=== PATIENT | female | born 1940 | race Caucasian/White ===

== ENCOUNTER → 2017-04-19 | Outpatient (CLI) | payer MEDICARE, BC ==
--- NOTE | 2017-04-19 14:22 | NM ---
EXAMINATION TYPE: NM bone scan whole body DATE OF EXAM: 04/19/2017 COMPARISON: CT abdomen pelvis dated 07/10/1715. Outside radiographs of the lumbar spine dated 04/15/20 17. HISTORY: Lumbar spondylosis with myelopathy. L3 compression deformity and L1 compression deformity. Delayed whole-body scanning was performed following the injection of 25.9 mCi Tc 99m MDP. Images acq uired 3 hours post injection. FINDINGS: The compression deformity noted of the L3 superior endplate described on the CT abdomen pelvis dated 07/10/1715 is seen on the outside radiographs dated 04/15/2017. L1 compression deformity was not visua lized on the prior CT. Focal uptake is appreciated within the L1 vertebral body. Mild symmetric uptak e is also seen within the acromioclavicular joints, sternal manubrium, femoral acetabular joints, met atarsals, and knees related to degenerative osteoarthropathy. Asymmetric uptake is also appreciated a long the left sacroiliac joint and within the T6 vertebral body. No other suspicious uptake is seen. Physiologic renal excretion into the urinary bladder is appreciat ed. IMPRESSION: 1. Focal radiotracer uptake within the L1 vertebral body corresponding to the known compression defor mity of L1 on the outside radiographs dated 04/15/2017. Radiotracer accumulation may relate to acute f racture or pathologic fracture. 2. Focal radiotracer cannulation within the T6 vertebral body could also relate to compression deform ity. Correlation with thoracic radiographs is recommended. 3. Asymmetric uptake within the left sacroiliac joint may relate to sacroiliitis or insufficiency fra cture. However, pelvic radiograph's are recommended to ensure no suspicious osseous lesion.
== END | disposition home or self-care (01) ==
LOC: RADNMMAIN 10:35
PROVIDERS: ATTEND Physical Medicine & Rehabilitation
DX: M43.8X6 Other specified deforming dorsopathies, lumbar region (principal)
CPT/HCPCS: 78306; A9503

== ENCOUNTER → 2017-11-29 | Outpatient (CLI) | payer MEDICARE, BC ==
[2017-11-29 10:42] LABS: Basophils % (A) 0 %; Eosinophils # (A) 0.2 k/uL (0-0.7); Eosinophils % (A) 4 %; HCT 33.1 % (34.0-46.0); HGB 10.6 gm/dL (11.4-16.0); Lymphocytes # (A) 1.1 k/uL (1.0-4.8); Lymphocytes % (A) 21 %; MCH 30.5 pg (25.0-35.0); MCHC 32.2 g/dL (31.0-37.0); MCV 94.8 fL (80.0-100.0); Mean Platelet Volume 7.4; Monocytes # (A) 0.5 k/uL (0-1.0); Monocytes % (A) 8 %; Neutrophils # (A) 3.4 k/uL (1.3-7.7); Neutrophils % (A) 63 %; Platelet Count 289 k/uL (150-450); RBC 3.49 m/uL (3.80-5.40); RDW 12.6 % (11.5-15.5); WBC 5.4 k/uL (3.8-10.6)
[2017-11-29 10:50] LABS: Appearance,Urine Clear (Clear); Bacteria,Urine Rare /hpf; Bilirubin,Urine Negative (Negative); Blood,Urine Small (Negative); Color,Urine Light Yellow; Glucose,Urine (UA) Negative (Negative); Ketones,Urine Negative (Negative); Leukocyte Esterase,Urine Moderate (Negative); Mucus,Urine Rare /hpf; Nitrite,Urine Negative (Negative); Protein,Urine Negative (Negative); RBC,Urine 23 /hpf (0-5); Specific Gravity,Urine 1.011 (1.001-1.035); Urobilinogen,Urine <2.0 mg/dL (<2.0); WBC,Urine 26 /hpf (0-5)
[2017-11-29 11:20] LABS: Albumin 3.6 g/dL (3.5-5.0); Calcium 9.6 mg/dL (8.4-10.2); Potassium 5.7 mmol/L (3.5-5.1); Total Bilirubin 0.3 mg/dL (0.2-1.3); Total Protein 5.8 g/dL (6.3-8.2)
== END | disposition home or self-care (01) ==
LOC: LABPAT 09:53
PROVIDERS: ATTEND Urology
DX: N20.0 Calculus of kidney (principal); R35.0 Frequency of micturition; R31.29 Other microscopic hematuria; R53.83 Other fatigue; Z01.818 Encounter for other preprocedural examination; Z79.899 Other long term (current) drug therapy
CPT/HCPCS: 36415; 80053; 81001; 85025; 86850; 86900; 86901; 87086; 93005

== ENCOUNTER 2017-12-06 05:56 | Day surgery (SDC) | payer MEDICARE, BC ==
[2017-12-03 14:01] VITALS: BMI 21.2
[~2017-12-06 05:56] MED LIST: AMPICILLIN 1,000 MG in SODIUM CHLORIDE 0.9% 50 ML IVPB ONE; DEXAMETHASONE SOD PHOSPHATE 10 MG/ML 1 ML VIAL IV ONE; GENTAMICIN IN NACL ISO-OSM PMX 80 MG in SALINE 1 100ML.BAG IVPB ONE; LACTATED RINGERS 1,000 ML IV SCH; MIDAZOLAM 2 MG/2 ML VIAL IV PRN; ONDANSETRON 4 MG/2 ML VIAL IVP ONE; fentaNYL (PF) 50 MCG/ML 2 ML AMP IV PRN
[2017-12-06] MEDS ORDERED: LIDOCAINE 1% 20 ML VIAL (10MG/ML) FOR IV START INTRADERMA ONE (06:49)
--- NOTE | 2017-12-06 07:12 | XR ---
EXAMINATION TYPE: XR KUB DATE OF EXAM: 12/06/2017 7:06 AM CLINICAL HISTORY: Right flank pain TECHNIQUE: Single supine KUB image of the abdomen is obtained. COMPARISON: None. FINDINGS: There are numerous bilateral renal calculi with the largest developed in the interim in com parison to exam of 07/10/1715 measuring 3.0 cm. The second largest on the right measures 1.0 cm. Susp ected additional small calculi are seen laterally. On the left there are multiple left renal calculi developing medially conforming to an early staghorn appearance. The largest measures 2.3 cm. There ar e at least 6 large calculi with some large calculi possibly representing confluent multiple small frandy culi. There is suspected compression deformity of the L1 vertebral body to the prior. Lumbar spine radiogra phs could be performed. Multilevel degenerative change of the lumbar spine is seen. Scattered gas is seen in non-distended small bowel loops. Gas and fecal material is seen in non-distended colon. IMPRESSION: 1. Multiple large bilateral calculi, the largest on the right measuring 3.0 cm and the largest on the left measuring 2.4 cm. 2. Suspected new compression deformity of the L1 vertebral body. Dedicated lumbar spine radiographs c ould be performed for further assessment.
[2017-12-06] MEDS ORDERED: GLYCOPYRROLATE 0.2 MG/ML 2 ML VIAL ONE (07:27)
[2017-12-06] MEDS ORDERED: fentaNYL (PF) 50 MCG/ML 2 ML AMP ONE (07:27)
[2017-12-06] MEDS ORDERED: ROCURONIUM BROMIDE 10 MG/ML 10 ML VIAL IV ONE (07:27)
[2017-12-06] MEDS ORDERED: MIDAZOLAM 2 MG/2 ML VIAL ONE (07:27)
[2017-12-06] MEDS ORDERED: PROPOFOL 10 MG/ML 20 ML VIAL IV ONE (07:27)
[2017-12-06] MEDS ORDERED: LIDOCAINE 1% INJ 10MG/ML (20 ML MDV) ONE (07:27)
[2017-12-06] MEDS ORDERED: NEOSTIGMINE 1 MG/ML 10 ML VIAL ONE (07:27)
[2017-12-06] MEDS ORDERED: IOPAMIDOL-370 50ML BTL MISCELLANE ONE (08:04)
[2017-12-06] MEDS ORDERED: LACTATED RINGERS 1,000 ML IV ONE (09:04)
[2017-12-06] MEDS ORDERED: MAG HYDROX/AL HYDROX/SIMETH 30 ML CUP PO PRN (09:22)
[2017-12-06] MEDS ORDERED: ONDANSETRON 4 MG/2 ML VIAL IVP PRN (09:22)
[2017-12-06] MEDS ORDERED: HYDROmorphone PCA 5 MG/25 ML SYRINGE IV PRN (09:24)
[2017-12-06] MEDS ORDERED: NALOXONE 0.4 MG/ML 1 ML VIAL IV PRN (09:24)
--- NOTE | 2017-12-06 09:31 | P.OP ---
Date of Procedure: 12/06/17 Preoperative Diagnosis: Right renal calculi, large Postoperative Diagnosis: Right renal calculi large Procedure(s) Performed: Cystoscopy, placement of occluding balloon catheter right, percutaneous nephrostomy (Dr. barth) , percutaneous nephrostolithotomy at ultrasound, placement of 12 J nephrostomy Anesthesia: HEATHER Surgeon: Shailesh Dumont Estimated Blood Loss (ml): 50 Pathology: other (Stone) Condition: stable Disposition: PACU Indications for Procedure: The patient is a 77-year-old female with a 3-1/2 cm right renal pelvic stone and an 8 mm UPJ stone causing obstruction she comes for percutaneous nephrostolithotomy to remove these large stones Description of Procedure: Patient is brought to the operating suite. She given a successful general endotracheal anesthesia. He's placed in a frog position with sterile prep and drape. Cystoscopy Foroblique lens and 22-[place] sheath identifies a normal right ureteral orifice. It is intubated with a 5-[place] occluding balloon catheter which is passed up to the proximal ureter. The cystoscope removed and it is secured to a 16-[place] Michael Patient's placed in a prone position care to airways and extremities. Dr. Barth of radiology performed percutaneous access to the right lower pole calyx. The sheath was dilated to 30-[place]. I introduced the rigid scope removed clot and identify the large stone. With the ultrasound probe the stone was broken into tiny pieces to the scope. I also remove the proximal ureteral stone. I looked throughout the collecting system with the flexible scope and remove smaller stones with the stone basket. At the end of procedure there is no obvious remaining stones. A 12-[place] J nephrostomy tubes placed over the working wire. It is placed in the renal pelvis. It is secured to the skin with 2-0 silk. The working sheath is removed. The patient notes awake and returned recovery in good condition. Blood loss is approximately 2 mL.
--- NOTE | 2017-12-06 10:08 | FL ---
EXAMINATION TYPE: FL Perc Nephrostomy New Access DATE OF EXAM: 12/06/2017 COMPARISON: NONE HISTORY: Right renal stone Procedure had been discussed with the patient by Dr. Dumont, risks, benefits, alternatives, were dis cussed and any questions were answered. Informed consent was obtained. The patient was in a semipro ne position prepped and draped on the OR table in the usual sterile fashion. Utilizing a 15 cm lengt h [place] needle a single pass was made into a lower pole posterior calyx under fluoroscopic guidance. An 0.018 guidewire is passed through the needle and there was placement of a 6-[place] catheter sheat h system. There was conversion to a 0.035 system was performed with passage of a guidewire into the ureter utilizing a directional catheter. A second safety wire was placed. Remaining portion of pro cedure performed by . Approximately 2 minutes and 54 seconds of fluoroscopy was provided. IMPRESSION: 1. Successful intraoperative right nephrostomy prior to nephrolithotomy.
[2017-12-06] MEDS: KETOROLAC 30 MG/ML 1 ML VIAL IVP PRN ×2 (11:38→17:41)
[2017-12-06] MEDS: DEXTROSE 5%-0.45% NACL 1,000 ML IV SCH (11:53)
[2017-12-06] MEDS: ACETAMINOPHEN TAB 325 MG TAB PO PRN ×2 (14:26→22:05)
[2017-12-07] MEDS: KETOROLAC 30 MG/ML 1 ML VIAL IVP PRN
[2017-12-07] MEDS: DEXTROSE 5%-0.45% NACL 1,000 ML IV SCH (00:11)
[2017-12-07] MEDS: ACETAMINOPHEN TAB 325 MG TAB PO PRN (05:11)
--- NOTE | 2017-12-07 09:51 | P.DS ---
Providers Date of admission: 10/06/2017 Expected date of discharge: 12/07/17 Attending physician: Shailesh Dumont Primary care physician: [facility] Course: The patient is a 77-year-old female with a history of right flank pain secondary to a 3.5 cm renal pelvic calculus and an 8 mm calculus at the ureteropelvic junction. The patient underwent right percutaneous nephrostolithotomy on the date of admission. A right nephrostomy tube and urethral catheter were left following the surgery. The patient remained afebrile and comfortable postop. Her urethral catheter was removed on the first day postop. Urine draining from the nephrostomy was pink colored but free of clots. The patient will be discharged with the nephrostomy tube in place and will follow-up with Dr. Dumont next week. Procedures: Right percutaneous nephrostolithotomy 10/06/2017 Patient Condition at Discharge: Good Plan - Discharge Summary Discharge Rx Participant: Yes New Discharge Prescriptions: No Action Ondansetron [Zofran ODT] 4 mg PO DAILY Tamsulosin [Flomax] 0.4 mg PO DAILY Acetaminophen [Tylenol Extra Strength] 1,000 mg PO Q6HR PRN PRN Reason: Pain Discharge Medication List Acetaminophen [Tylenol Extra Strength] 1,000 mg PO Q6HR PRN 12/03/17 [History] Ondansetron [Zofran ODT] 4 mg PO DAILY 12/03/17 [History] Tamsulosin [Flomax] 0.4 mg PO DAILY 12/03/17 [History] Follow up Appointment(s)/Referral(s): Shailesh Dumont MD [STAFF PHYSICIAN] - 3 Days Activity/Diet/Wound Care/Special Instructions: Instruct patient in care of nephrostomy tube Discharge Disposition: HOME SELF-CARE
[2017-12-07 11:47] VITALS: BP 159/66; PULSE 63; RESP 18; TEMP 97.3
== END 2017-12-07 12:13 | disposition home or self-care (01) ==
LOC: OR 05:56 → 6PED 09:06 → OR 12-07 12:13
PROVIDERS: ATTEND Urology
DX: N20.2 Calculus of kidney with calculus of ureter (principal); Z90.49 Acquired absence of other specified parts of digestive tract; Z87.442 Personal history of urinary calculi; Z79.82 Long term (current) use of aspirin; Z79.1 Long term (current) use of non-steroidal anti-inflammatories (NSAID); Z79.899 Other long term (current) drug therapy; Z88.5 Allergy status to narcotic agent
CPT/HCPCS: 84132; 82365; 50432; 74018; 50081; C1769 ×4; C2628; C1729 ×4; C1894; J1580; J2250; J1100; J2710; J2405; J2001; J3010; J1885 ×2; J0290; J2704; Q9967; 86850; 86900; 86901

== ENCOUNTER → 2018-06-24 | Outpatient (CLI) | payer MEDICARE, BC | END | disposition home or self-care (01) | LOC: LABWHC1 12:00 | PROVIDERS: ATTEND Urology | DX: Z01.812 Encounter for preprocedural laboratory examination (principal) | CPT/HCPCS: 36415; 86850; 86900; 86901 ==

== ENCOUNTER 2018-06-25 05:53 | Day surgery (SDC) | payer MEDICARE, BC ==
[~2018-06-25 05:53] MED LIST changes: -AMPICILLIN 1,000 MG in SODIUM CHLORIDE 0.9% 50 ML IVPB ONE; -GENTAMICIN IN NACL ISO-OSM PMX 80 MG in SALINE 1 100ML.BAG IVPB ONE; -LACTATED RINGERS 1,000 ML IV SCH; +LIDOCAINE 1% 20 ML VIAL (10MG/ML) FOR IV START INTRADERMA PRN; +SCOPOLAMINE 1.5MG/72HR PATCH TRANSDERM ONE; +ceFAZolin IN SWFI 2 GM/20 ML SYRINGE IVP ONE; -fentaNYL (PF) 50 MCG/ML 2 ML AMP IV PRN
[2018-06-25] MEDS: LACTATED RINGERS 1,000 ML IV SCH (06:46)
[2018-06-25 07:34] LABS: INR 1.1 (<1.2); Prothrombin Time 10.4 sec (9.0-12.0)
--- NOTE | 2018-06-25 07:47 | P.GSHP ---
History of Present Illness H&P Date: 06/25/18 The patient is a 78-year-old female with a history kidney stones. She is status post right percutaneous nephrostolithotomy. She has a partially branch staghorn calculus in the left kidney. She come for percutaneous nephrostolithotomy for this. The risks and complications of an outlined. - Constitutional Constitutional: Denies chills, Denies fever - EENT Eyes: denies blurred vision, denies pain Ears, nose, mouth and throat: Denies headache, Denies sore throat - Cardiovascular Cardiovascular: Denies chest pain, Denies shortness of breath - Respiratory Respiratory: Denies cough, Denies 7 - Gastrointestinal Gastrointestinal: Denies abdominal pain, Denies diarrhea, Denies nausea, Denies vomiting - Genitourinary (Female) Genitourinary: Denies dysuria, Denies hematuria - Genitourinary (Male) Genitourinary: Denies dysuria, Denies hematuria - Musculoskeletal Musculoskeletal: Denies myalgias - Integumentary Integumentary: Denies pruritus, Denies rash - Neurological Neurological: Denies numbness, Denies weakness - Psychiatric Psychiatric: Denies anxiety, Denies depression - Endocrine Endocrine: Denies fatigue, Denies weight change Past Medical History Past Medical History: Blood Disorder, Pulmonary Embolus (PE) Additional Past Medical History / Comment(s): states unsure of blood disorder, sees a specialist for it, bowel obstruction, kidney stones, varicose veins, "short bowel syndrome"(frequent diarrhea), History of Any Multi-Drug Resistant Organisms: None Reported Past Surgical History: Appendectomy, Bowel Resection, Orthopedic Surgery, Tonsillectomy Additional Past Surgical History / Comment(s): spleenectomy, bowel resection for twisted bowel, nohelia shoulder arthroscopy, 12/06/2017 right neproholitomy with nephrostomy tube. Past Anesthesia/Blood Transfusion Reactions: Postoperative Nausea & Vomiting ( PONV) Past Psychological History: No Psychological Hx Reported Smoking Status: Former smoker Past Alcohol Use History: Occasional Additional Past Alcohol Use History / Comment(s): quit smoking 40 yrs ago, smoked for 15 yrs, < 1 PPD Past Drug Use History: None Reported - Past Family History Mother Family Medical History: No Reported History Medications and Allergies Home Medications Medication Instructions Recorded Confirmed Type Acetaminophen [Tylenol Extra 1,000 mg PO Q6HR PRN 12/03/17 06/25/18 History Strength] Warfarin [Coumadin] 2.5 mg PO SUMOWEFR 06/23/18 06/23/18 History Allergies Allergy/AdvReac Type Severity Reaction Status Date / Time hydrocodone bitartrate AdvReac Nausea Verified 06/23/18 11:18 [From [place]] hydromorphone HCl AdvReac Nausea Verified 06/23/18 11:18 [From Dilaudid] morphine AdvReac Nausea Verified 06/23/18 11:18 Surgical - Exam Vital Signs Temp Pulse Resp BP Pulse Ox 97.4 F L 69 18 182/82 98 06/25/18 06:27 06/25/18 06:27 06/25/18 06:27 06/25/18 06:27 06/25/18 06:27 - General well developed, well nourished, no distress - Eyes PERRL - ENT no hearing loss - Neck no masses - Respiratory normal expansion, normal respiratory effort - Cardiovascular Rhythm: regular - Abdomen Abdomen: soft, non tender - Integumentary no rash, no growths - Neurologic normal coordination, normal sensation - Musculoskeletal normal gait, normal posture - Psychiatric oriented to time, oriented to person, oriented to place, speech is normal, memory intact Results - Imaging Abdominal x-ray: report reviewed, image reviewed CT scan - abdomen: report reviewed, image reviewed CT scan - pelvis: report reviewed, image reviewed Assessment and Plan Assessment: Impression: Left renal calculus, large Recommendations: Percutaneous nephrostolithotomy left with cystoscopy.
[2018-06-25] MEDS ORDERED: SUCCINYLCHOLINE CHLORIDE 100 MG/5 ML SYR IV ONE (08:04)
[2018-06-25] MEDS ORDERED: LIDOCAINE 1% INJ 10MG/ML (20 ML MDV) ONE (08:04)
[2018-06-25] MEDS ORDERED: fentaNYL (PF) 50 MCG/ML 2 ML AMP ONE (08:04)
[2018-06-25] MEDS ORDERED: PROPOFOL 10 MG/ML 20 ML VIAL IV ONE (08:04)
[2018-06-25] MEDS ORDERED: ROCURONIUM BROMIDE 10 MG/ML 10 ML VIAL IV ONE (08:04)
[2018-06-25] MEDS ORDERED: MIDAZOLAM 2 MG/2 ML VIAL ONE (08:04)
[2018-06-25] MEDS ORDERED: GLYCOPYRROLATE 0.2 MG/ML 2 ML VIAL ONE (08:04)
[2018-06-25] MEDS ORDERED: NEOSTIGMINE 1 MG/ML 10 ML VIAL ONE (08:04)
--- NOTE | 2018-06-25 08:24 | XR ---
Abdomen HISTORY: Left kidney stone Frontal view the abdomen on 2 images correlated to prior abdomen dated 12/06/2017, CT 11/25/2017 Large stone seen on previous exam within the right kidney is no longer evident. There are 2 small frandy culi present at the upper pole the right kidney measuring approximately 5 and 3 to 4 mm respectively. At the left kidney upper pole region there is a calculus measuring 19 mm, midpole R region multiple calculi present, largest measuring approximately 18 mm, there may be 4 5 calculi present. Large amoun t of retained fecal debris is present within the colon. Lung bases are clear. No evident bowel obstru ction or pneumoperitoneum. Surgical clips are present in the left upper quadrant. IMPRESSION: Bilateral nephrolithiasis. Correlate for fecal stasis.
[2018-06-25] MEDS ORDERED: IOHEXOL IRRIGATION ONE (08:40)
[2018-06-25] MEDS ORDERED: SODIUM CHLORIDE 0.9% IRRIGATION ONE (08:40)
[2018-06-25] MEDS ORDERED: LACTATED RINGERS 1,000 ML IV ONE ×2 (09:27→11:10)
[2018-06-25] MEDS ORDERED: MAG HYDROX/AL HYDROX/SIMETH 30 ML CUP PO PRN (10:25)
[2018-06-25] MEDS ORDERED: ACETAMINOPHEN TAB 325 MG TAB PO PRN (10:25)
[2018-06-25] MEDS ORDERED: NALOXONE 0.4 MG/ML 1 ML VIAL IV PRN (10:27)
[2018-06-25] MEDS ORDERED: HYDROmorphone PCA 5 MG/25 ML SYRINGE IV PRN (10:27)
[2018-06-25] MEDS ORDERED: KETOROLAC 30 MG/ML 1 ML VIAL IVP PRN (10:27)
--- NOTE | 2018-06-25 10:32 | P.OP ---
Date of Procedure: 06/25/18 Preoperative Diagnosis: Partial staghorn calculus left, large Postoperative Diagnosis: Same Procedure(s) Performed: Cystoscopy, placement of occluding balloon catheter a left ureter, percutaneous nephrostomy (Dr. Leong), percutaneous nephrostolithotomy with ultrasound, placement of 20-[place] reentry nephrostomy tube Anesthesia: HEATHER Surgeon: Shailesh Dumont Estimated Blood Loss (ml): 100 Pathology: other (Stone) Condition: stable Disposition: PACU Indications for Procedure: The patient is 78. She had a percutaneous nephrostolithotomy to a staghorn calculus on the right last spring. She now has a partial staghorn calculus on the left that she comes for removal the stone that is greater than 3 cm Description of Procedure: The patient is brought to the operating suite. She is given a general endotracheal anesthesia on the transport gurney. She's placed in a frog position with a sterile prep and drape. Cystoscopy of the Foroblique lens and 22-[place] sheath I identifies the left ureteral orifice which is intubated with a 5-[place] occluding balloon catheter. It is secured to the Michael catheter after the cystoscope was removed. The patient is then placed onto the operating table in a prone position with care to airways and extremities Dr. Leong of radiology performed percutaneous access to the posterior mid pole calyx. We dilate the tract to 30-[place]. Upon initial inspection it becomes obvious that she has a very complicated delicate collecting system with stone within. With difficult angles I'm able to eventually get into the upper pole calyx and remove the large stone with ultrasound fracturing the stone and removing it. I then am able to get into one of the lower pole calyces which is complex and remove a moderate amount of stone. Due to edema and mucosal leading I am unable to access all the lower pole calyces. Thus stone remains that I'm unable to access. She has multiple minor calyces that not benefit from a second stick at this point in time. I thus will place a nephrostomy tube and do a second look into the lower pole collecting system to remove the remaining stone next week. A 20-[place] reentry nephrostomy tube was placed. It is secured to the skin. The patient is awakened and removed to recovery room success. The ureteral catheters removed. The patient tolerated the procedure well. Blood loss is approximately 1 mm.
[2018-06-25] MEDS: HYDROmorphone 0.5 MG/0.5 ML SYRINGE IVP PRN ×2 (10:58→11:04)
[2018-06-25] MEDS: ONDANSETRON 4 MG/2 ML VIAL IVP PRN ×2 (12:21→18:30)
[2018-06-25 13:33] VITALS: BMI 20.2
[2018-06-25] MEDS: DEXTROSE 5%-0.45% NACL 1,000 ML IV SCH (13:55)
--- NOTE | 2018-06-25 14:30 | FL ---
EXAMINATION TYPE: FL Perc Nephrostomy New Access DATE OF EXAM: 06/25/2018 COMPARISON: CT from outside institution 11/25/2017 HISTORY: Left nephrolithiasis. PROCEDURE: Maximal barrier technique was utilized. The skin overlying the left kidney was localized using fluor oscopy and the overlying skin prepped and draped. Lidocaine used for local anesthesia. Skin joaquim wa s made with a scalpel. Access was gained under fluoroscopy, following placement of a ureteral occlus ion balloon by the referring clinician and instillation of air in the renal collecting system with a 21-gauge needle to the kidney. A suitable posterior calyx was chosen. A 0.018 inch wire was advanc ed. The access site was dilated and subsequently a sheath was advanced into the renal pelvis followi ng dilation with balloon along the tract. Urine returned in the hub of the catheter. The patient unde rwent nephrolithotomy by the referring clinician. I was called back to the operating room for additio nal access. Using similar technique a posterior calyx was chosen and following skin joaquim a 21-gauge n eedle was advanced to the level of the calculus.0.018 inch wire was advanced. The clinician wilder archer evaluated through the existing sheath. Patient underwent nephrolithotomy. The patient remained in stable condition without complication. The patient was discharged to observation in the care of erwin syed. 3 minutes 6 seconds fluoroscopy time supplied. 2 intraoperative images document the procedure. IMPRESSION: STATUS POST NEPHROSTOMY PLACEMENT FOR NEPHROLITHOTOMY WITH FLUOROSCOPIC GUIDANCE. THIS PROCEDURE PER FORMED BY THE UNDERSIGNED.
[2018-06-26] MEDS: DEXTROSE 5%-0.45% NACL 1,000 ML IV SCH ×3 (02:37→16:42)
[2018-06-26] MEDS: LACTATED RINGERS 1,000 ML IV SCH (06:28)
[2018-06-26] MEDS ORDERED: HYDROcodone/APAP 5-325MG 1 EACH TAB PO PRN (11:39)
--- NOTE | 2018-06-26 11:40 | P.PN ---
Subjective Progress Note Date: 06/26/18 The patient is in her first postoperative day from a left percutaneous nephrostolithotomy. This was incomplete due to the complex intra-parenchymal anatomy. She is doing well. She still has a moderate amount of discomfort. The urine is clearing. I will discontinue her Michael. I will switch her to oral pain medicine. She'll be discharged home in the morning. A secondary nephrostolithotomy which has been discussed with performed next week. Objective - Vital Signs Vital signs: Vital Signs Temp 98.2 F 06/26/18 07:15 Pulse 70 06/26/18 07:15 Resp 14 06/26/18 08:00 BP 136/61 06/26/18 07:15 Pulse Ox 97 06/26/18 08:30 Intake & Output 06/25/18 06/26/18 06/26/18 18:59 06:59 18:59 Intake Total 1151 240 Output Total 1070 350 500 Balance 81 -350 -260 Weight 52 kg 52 kg Intake: IV 1151 Oral 240 Output: Drainage 70 300 Left Back 70 300 Urine 900 350 200 Estimated Blood Loss 100 Other: Voiding Method Indwelling Catheter Indwelling Catheter Indwelling Catheter
[2018-06-26] MEDS: ACETAMINOPHEN TAB 500 MG TAB PO PRN (15:34)
[2018-06-26] MEDS: ONDANSETRON 4 MG/2 ML VIAL IVP PRN (15:39)
[2018-06-26 23:25] VITALS: RESP 16
[2018-06-27] MEDS: DEXTROSE 5%-0.45% NACL 1,000 ML IV SCH (05:30)
[2018-06-27] MEDS: LACTATED RINGERS 1,000 ML IV SCH (05:30)
--- NOTE | 2018-06-27 07:33 | P.DS ---
Providers Attending physician: Shailesh Dumont Primary care physician: Adrian Walsh [facility] Course: The patient was admitted to the hospital 06/25/2018 for a left percutaneous nephrostolithotomy. She underwent removal of a large volume of stones however still stone remaining due to the complexity of her intra-calyceal anatomy. She has done well postoperatively. She'll be set up for a secondary look next week. She'll be discharged home with the nephrostomy tube. Her pain is under control. Diet is regular and her vital signs are stable. Her condition is good. I made arrangements for a second look next Saturday. Patient Condition at Discharge: Good Plan - Discharge Summary Discharge Rx Participant: Yes New Discharge Prescriptions: New HYDROcodone/APAP 5-325MG [[place] 5-325] 1 tab PO Q4HR PRN #14 tab PRN Reason: Pain No Action Acetaminophen [Tylenol Extra Strength] 1,000 mg PO Q6HR PRN PRN Reason: Pain Warfarin [Coumadin] 2.5 mg PO SUMOWEFR Discharge Medication List Acetaminophen [Tylenol Extra Strength] 1,000 mg PO Q6HR PRN 12/03/17 [History] Warfarin [Coumadin] 2.5 mg PO SUMOWEFR 06/23/18 [History] HYDROcodone/APAP 5-325MG [[place] 5-325] 1 tab PO Q4HR PRN #14 tab 06/27/18 [Rx] Activity/Diet/Wound Care/Special Instructions: Home with nephrostomy tube and dressing supplies, we will hold Coumadin until after Surgery Discharge Disposition: HOME SELF-CARE
[2018-06-27 07:55] VITALS: BP 137/71; PULSE 75; TEMP 97.6
[2018-06-27] MEDS: ACETAMINOPHEN TAB 500 MG TAB PO PRN (08:22)
== END 2018-06-27 10:50 | disposition home or self-care (01) ==
LOC: OR 05:53 → 4SSUR 12:01 → OR 06-27 10:50
PROVIDERS: ATTEND Urology
DX: N20.0 Calculus of kidney (principal); D75.9 Disease of blood and blood-forming organs, unspecified; Z86.711 Personal history of pulmonary embolism; Z87.442 Personal history of urinary calculi; K91.2 Postsurgical malabsorption, not elsewhere classified; Z90.49 Acquired absence of other specified parts of digestive tract; Z87.891 Personal history of nicotine dependence; Z79.01 Long term (current) use of anticoagulants; Z88.5 Allergy status to narcotic agent; K21.9 Gastro-esophageal reflux disease without esophagitis
CPT/HCPCS: 50081; 50395; 74485; 94760; 94762; 85610; 82365; 50432; 74018; C1769 ×3; C2628; C1894; J2250; J1100; J2710; J2405 ×2; J2001; J3010; J1885; J1170 ×2; J0330; J2704; Q9967; J0690; 36415; 86850; 86900; 86901

== ENCOUNTER 2018-07-02 07:23 | Day surgery (SDC) | payer MEDICARE, BC ==
[2018-06-30 12:00] VITALS: BMI 19.5
--- NOTE | 2018-07-01 13:29 | P.GSHP ---
History of Present Illness H&P Date: 07/01/18 78 yo female with history of stones Hada left pcnl last week but due to a complex intrarenal collecting system and a large volume of stone it was incompletely removed SHe comes for a secondary pcnl left - Constitutional Constitutional: Denies chills, Denies fever - EENT Eyes: denies blurred vision, denies pain Ears, nose, mouth and throat: Denies headache, Denies sore throat - Cardiovascular Cardiovascular: Denies chest pain, Denies shortness of breath - Respiratory Respiratory: Denies cough, Denies 7 - Gastrointestinal Gastrointestinal: Denies abdominal pain, Denies diarrhea, Denies nausea, Denies vomiting - Genitourinary (Female) Genitourinary: Denies dysuria, Denies hematuria - Genitourinary (Male) Genitourinary: Denies dysuria, Denies hematuria - Musculoskeletal Musculoskeletal: Denies myalgias - Integumentary Integumentary: Denies pruritus, Denies rash - Neurological Neurological: Denies numbness, Denies weakness - Psychiatric Psychiatric: Denies anxiety, Denies depression - Endocrine Endocrine: Denies fatigue, Denies weight change Past Medical History Past Medical History: Blood Disorder, Pulmonary Embolus (PE) Additional Past Medical History / Comment(s): states unsure of blood disorder, sees a specialist for it, bowel obstruction, kidney stones, varicose veins, "short bowel syndrome"(frequent diarrhea),has nephostomy tube in place History of Any Multi-Drug Resistant Organisms: None Reported Past Surgical History: Appendectomy, Bowel Resection, Orthopedic Surgery, Tonsillectomy Additional Past Surgical History / Comment(s): spleenectomy, bowel resection for twisted bowel, nohelia shoulder arthroscopy, 12/06/2017 right neproholitomy with nephrostomy tube, 06/25/18 lt nephrolithotomy Past Anesthesia/Blood Transfusion Reactions: Postoperative Nausea & Vomiting ( PONV) Smoking Status: Former smoker - Past Family History Mother Family Medical History: No Reported History Medications and Allergies Home Medications Medication Instructions Recorded Confirmed Type Acetaminophen [Tylenol Extra 1,000 mg PO Q6HR PRN 12/03/17 06/30/18 History Strength] Warfarin [Coumadin] 2.5 mg PO SUMOWEFR 06/23/18 06/30/18 History HYDROcodone/APAP 5-325MG [[place] 1 tab PO Q4HR PRN #14 tab 06/27/18 06/30/18 Rx [id number]] Allergies Allergy/AdvReac Type Severity Reaction Status Date / Time hydrocodone bitartrate AdvReac Nausea Verified 06/30/18 13:22 [From [place]] morphine AdvReac Nausea Verified 06/30/18 13:22 Surgical - Exam - General well developed, well nourished, no distress - Eyes PERRL - ENT no hearing loss - Neck no masses - Respiratory normal expansion, normal respiratory effort - Cardiovascular Rhythm: regular - Abdomen left nephrostomy tube Abdomen: soft - Integumentary no rash, no growths - Neurologic normal coordination, normal sensation - Musculoskeletal normal gait, normal posture - Psychiatric oriented to time, oriented to person, oriented to place, speech is normal, memory intact Assessment and Plan Assessment: Impression: Retained left renal stone Plan; Secondary PCNL
[~2018-07-02 07:23] MED LIST changes: +AMPICILLIN 1,000 MG in SODIUM CHLORIDE 0.9% 50 ML IVPB ONE; -DEXAMETHASONE SOD PHOSPHATE 10 MG/ML 1 ML VIAL IV ONE; +GENTAMICIN IN NACL ISO-OSM PMX 80 MG in SALINE 1 100ML.BAG IVPB ONE; +LACTATED RINGERS 1,000 ML IV SCH; -MIDAZOLAM 2 MG/2 ML VIAL IV PRN; -SCOPOLAMINE 1.5MG/72HR PATCH TRANSDERM ONE; -ceFAZolin IN SWFI 2 GM/20 ML SYRINGE IVP ONE; +fentaNYL (PF) 50 MCG/ML 2 ML AMP IV PRN
--- NOTE | 2018-07-02 07:56 | XR ---
EXAMINATION TYPE: XR KUB DATE OF EXAM: 07/02/2018 COMPARISON: 06/25/2018 INDICATION: Renal stones TECHNIQUE: Single view abdomen frontal projection FINDINGS: There is a normal bowel gas pattern. Psoas margins are normal. No organomegaly is present. Catheter is been placed on the left. Multiple kidney stones are present on the left. Couple of kidney stones are present on the mid pole right kidney. IMPRESSION: 1. Multiple bilateral renal stones. 2. Placement of a catheter on the left.
[2018-07-02 08:11] VITALS: RESP 16
[2018-07-02 08:29] LABS: Basophils # (A) 0.1 k/uL (0-0.2); Basophils % (A) 1 %; Eosinophils # (A) 0.5 k/uL (0-0.7); Eosinophils % (A) 6 %; HGB 11.5 gm/dL (11.4-16.0); Lymphocytes % (A) 24 %; MCH 30.9 pg (25.0-35.0); MCHC 31.8 g/dL (31.0-37.0); MCV 96.9 fL (80.0-100.0); Mean Platelet Volume 6.4; Monocytes # (A) 0.7 k/uL (0-1.0); Monocytes % (A) 9 %; Neutrophils # (A) 4.8 k/uL (1.3-7.7); Neutrophils % (A) 57 %; Platelet Count 495 k/uL (150-450); RBC 3.71 m/uL (3.80-5.40); RDW 13.8 % (11.5-15.5); WBC 8.5 k/uL (3.8-10.6)
[2018-07-02 09:23] LABS: INR 0.9 (<1.2); Prothrombin Time 10.2 sec (9.0-12.0)
[2018-07-02] MEDS ORDERED: PROPOFOL 10 MG/ML 20 ML VIAL IV ONE (09:24)
[2018-07-02] MEDS ORDERED: ePHEDrine SULFATE/0.9% NACL/PF 50 MG/5 ML SYRINGE IV ONE (09:24)
[2018-07-02] MEDS ORDERED: LIDOCAINE 1% INJ 10MG/ML (20 ML MDV) ONE (09:24)
[2018-07-02] MEDS ORDERED: MIDAZOLAM 2 MG/2 ML VIAL ONE (09:24)
[2018-07-02] MEDS ORDERED: SUCCINYLCHOLINE CHLORIDE 100 MG/5 ML SYR IV ONE (09:24)
[2018-07-02] MEDS ORDERED: fentaNYL (PF) 50 MCG/ML 2 ML AMP ONE (09:24)
[2018-07-02 09:48] LABS: Partial Thromboplastin Time 18.1 sec (22.0-30.0)
[2018-07-02] MEDS ORDERED: IOHEXOL 350 MG/ML (PER ML) 100ML BTL MISCELLANE ONE (09:48)
[2018-07-02] MEDS ORDERED: IOPAMIDOL-300 50ML BTL MISCELLANE ONE ×2 (09:48)
--- NOTE | 2018-07-02 10:44 | P.OP ---
Date of Procedure: 07/02/18 Preoperative Diagnosis: Retained left renal stones, large Postoperative Diagnosis: Same Procedure(s) Performed: Secondary percutaneous nephrostolithotomy Anesthesia: HEATHER Surgeon: Shailesh Dumont Estimated Blood Loss (ml): 0 Pathology: other (Stones) Condition: stable Disposition: PACU Indications for Procedure: The patient is a 78-year-old female who underwent a percutaneous nephrostolithotomy for a full branch staghorn. Two thirds of her stone was removed but due to edema and location of the complex anatomy I cannot remove it all. She comes for a secondary nephrostolithotomy the 20-Georgian reentry sheath was already established Description of Procedure: The patient is brought to the operating suite. On the transport gurney she's given a successful general endotracheal anesthesia. Michael catheters introduced sterilely. She's placed in a prone position with care to airways and extremities. Through the 20-Georgian reentry nephrostomy tube at attempt to pass an 035 wire down the ureter but it is clogged with stone. I thus keep this stent in the ureter and passed the flexible nephroscope down to the proximal ureter. I removed the stent and passed an 035 or through the scope down the ureter for location. I then reintroduced the nephroscope alongside the wire. I look tediously through all the collecting system best I can identify. I basket about stones. There are 2-3 tiny stones that I'm unable to access into very difficult calyces or perhaps they are behind renal pyramids. I do intraoperative prostate grams to aid but I'm unable to remove 2-3 stones at about 3 mm in diameter. The ureter is inspected and is clear. The nephroscope was removed the wound is dressed the patient's awake and returned recovery room good condition. Blood loss is negligible. The patient will be discharged home upon recovery and found the office in one week.
[2018-07-02 10:59] VITALS: TEMP 97.6
--- NOTE | 2018-07-02 12:13 | FL ---
Fluoroscopy HISTORY: Percutaneous nephrostomy tube exchange 27 seconds fluoroscopy time supplied to the referring clinician. 2 intraoperative C-arm images docum ent the procedure. See dictated report from urology.
[2018-07-02] MEDS ORDERED: ARTIFICIAL TEARS-HYPROMELLOSE DROPS 15 ML BTL LEFT EYE PRN (13:05)
[2018-07-02 13:38] VITALS: BP 166/71; PULSE 86
--- NOTE | 2018-07-02 15:48 | P.CON ---
Consult Note - . Consult date: 07/02/18 Assessment/Plan:: This is a 78 y/o female who completed a urological procedure who on awakening noted some discomfort in her left eye. She believes she rubbed her eye while it may have been open and she was not entirely aware of her surroundings. I was asked to see for this discomfort. She normally sees Dr. Gamal Anderson in [place], [place] and has kept up with her routine appointments. She previously has had RK. Exam: General: Is A&O x 3, in mild discomfort with moderate tearing from left eye. Va w/ glasses 20/40 OU at near EOM: full Pupils: w/o APD. Adnexa: unremarkable Conjunctiva: quiet Cornea: OD unremarkable, OS with 3 mm wide abrasion from the limbus to peripupillary area ~ 3.5 mm in length. Seen with fluorescein and black light. ( RK easily identified.) AC quiet A: corneal abrasion left eye superficial. P: begin aggressive lubrication of the eye with artificial tears, and moxifloxacin 3 times daily for a week. Will ask she return to myself or Dr. Anderson in the week as well. thank you for the kind consultation of this pleasant patient.
[2018-07-02] MEDS ORDERED: MOXIFLOXACIN HCL 0.5% DROPS 3 ML BTL LEFT EYE SCH (16:00)
== END 2018-07-02 14:30 | disposition home or self-care (01) ==
LOC: OR 07:23
PROVIDERS: ATTEND Urology
DX: N20.0 Calculus of kidney (principal); Z43.6 Encounter for attention to other artificial openings of urinary tract; S05.02XA Injury of conjunctiva and corneal abrasion without foreign body, left eye, initial encounter; X58.XXXA Exposure to other specified factors, initial encounter; Y92.239 Unspecified place in hospital as the place of occurrence of the external cause; I71.2 Thoracic aortic aneurysm, without rupture; I83.90 Asymptomatic varicose veins of unspecified lower extremity; Z87.442 Personal history of urinary calculi; Z86.711 Personal history of pulmonary embolism; Z87.891 Personal history of nicotine dependence; Z79.01 Long term (current) use of anticoagulants; Z79.899 Other long term (current) drug therapy; Z88.5 Allergy status to narcotic agent; Z90.49 Acquired absence of other specified parts of digestive tract
CPT/HCPCS: 85025; 85610; 85730; 82365; 50435; 74018; 50561; C1769 ×2; J1580; J2250; J2405; J2001; J3010; J0290; J0330; J2704; Q9967

== ENCOUNTER → 2018-09-26 | Outpatient (CLI) | payer MEDICARE, BC ==
--- NOTE | 2018-09-26 13:02 | MR ---
EXAMINATION TYPE: MR lumbar spine wo con DATE OF EXAM: 09/26/2018 COMPARISON: NONE HISTORY: LBP, rt side x 1-2 yrs, no hx trauma/surgery TECHNIQUE: T1 and T2 axial and sagittal images of the lumbar spine are submitted. FINDINGS: There is no abnormal signal seen within the visualized spinal cord or paraspinal soft tissu es. There is compression fractures of T11, T12, L1, L3, L4, and L5. Loss of normal lumbar lordosis. S imple appearing left renal cyst incidentally noted At T10-T11 severe compression deformity 11 with abnormal marrow signal. No soft tissue mass. Approxim ate 5% retropulsion. T11-T12 no canal stenosis or disc herniation. Neural foramina patent. Mild chronic appearing endplate deformity of T12. At T12-L1 there is approximate 5-10% retropulsion. No spinal cord contact. There is effacement of the frandy sac. Bilateral mild foraminal encroachment. At L1-2 there is broad-based disc bulging. Facet arthropathy and hypertrophy ligamentum flavum. No Ca nal stenosis. L2 demonstrates a mild superior endplate compression deformity with approximately 5% re tropulsion effacement of thecal sac. Abnormal signal the L2 vertebral body. Mild bilateral neural for aminal encroachment. At L2-3 there is diffuse disc bulging with mild effacement of thecal sac. Hypertrophic change of the facets and ligamentum flavum with mild bilateral foraminal encroachment. There is retropulsion of ollie roximately 5%. Findings suggest mild central stenosis. At L3-4 there is retropulsion secondary compression deformities of L3 and L4 with broad-based disc pr otrusion. Hypertrophy of the facets and ligamentum flavum contribute to moderate central stenosis and bilateral foraminal encroachment. At L4-5 there is compression deformities of L1 4 and L5 which appear chronic. Broad-based disc bulgin g and hypertrophic change of the facets and ligamentum flavum result in mild to moderate central sten osis and bilateral foraminal mild encroachment. At L5-S1 there is facet arthropathy but no disc herniation or canal stenosis. Endplate chronic to com pression fracture of L5. IMPRESSION: 1. Numerous compression fractures throughout the visualized vertebral column with retropulsion rangin g from 5-10% as discussed above. No spinal cord contact. 2. Multilevel canal stenosis and foraminal encroachment as discussed above. 3. Abnormal marrow signal at T11, L2 and L3 may been the basis of more recent compression fractures. No definite soft tissue component to suggest neoplastic process. Bone scan is suggested.
== END | disposition home or self-care (01) ==
LOC: RADMRIMAIN 10:37
PROVIDERS: ATTEND Orthopaedic Surgery Orthopaedic Surgery of the Spine
DX: S32.020A Wedge compression fracture of second lumbar vertebra, initial encounter for closed fracture (principal); S32.030A Wedge compression fracture of third lumbar vertebra, initial encounter for closed fracture; S32.040A Wedge compression fracture of fourth lumbar vertebra, initial encounter for closed fracture; S32.050A Wedge compression fracture of fifth lumbar vertebra, initial encounter for closed fracture; M48.061 Spinal stenosis, lumbar region without neurogenic claudication
CPT/HCPCS: 72148

== ENCOUNTER → 2018-11-12 | Outpatient (CLI) | payer MEDICARE, BC ==
[2018-11-10 17:07] VITALS: BMI 20.3
[2018-11-12 12:36] VITALS: BP 160/83; PULSE 80; RESP 16
--- NOTE | 2018-11-12 12:48 | P.PAINCN ---
History of Present Illness - Reason for Consult Consult date: 11/12/18 Intractable low back pain - Chief Complaint Intractable low back pain - History of Present Illness This is a very pleasant 78 showed woman with a history of osteoporosis and previous compression fractures who was referred to our facility by her physician for some epidural steroid injections to treat her symptomatically lumbar spinal stenosis. She reports she has intractable back pain which is worse with standing. She denies any radicular symptoms at this time. She denies any bowel or bladder dysfunction. Review of Systems All systems: negative (Intractable back pain) Past Medical History Past Medical History: Blood Disorder, Pulmonary Embolus (PE) Additional Past Medical History / Comment(s): states unsure of blood disorder, OFF COUMADIN 1 WEEK AGO, sees a specialist for it. bowel obstruction, "short bowel syndrome"(frequent diarrhea). KIDNEY STONES X3. VARICOSE VEINS. HX INJURY TO BACK, HAS FRACTURES & BULGING DISCS. OSTEOPOROSIS. History of Any Multi-Drug Resistant Organisms: None Reported Past Surgical History: Appendectomy, Bowel Resection, Orthopedic Surgery, Tonsillectomy Additional Past Surgical History / Comment(s): spleenectomy 2017, bowel resection for twisted bowel, nohelia shoulder arthroscopy, 12/06/2017 right neproholitomy with nephrostomy tube, 06/25/18 lt nephrolithotomy. Past Anesthesia/Blood Transfusion Reactions: Postoperative Nausea & Vomiting (P ONV) Past Psychological History: No Psychological Hx Reported Smoking Status: Former smoker Past Alcohol Use History: Occasional Additional Past Alcohol Use History / Comment(s): quit smoking 1979 EST, smoked for 1O yrs, < 1 PPD Past Drug Use History: None Reported - Past Family History Mother Family Medical History: No Reported History Father Family Medical History: Cancer Additional Family Medical History / Comment(s): LUNG CA Medications and Allergies Home Medications Medication Instructions Recorded Confirmed Type Acetaminophen [Tylenol Extra 1,000 mg PO Q6HR PRN 12/03/17 11/12/18 History Strength] Biotin (Unknown Dose) 1 tab PO DAILY 11/10/18 11/12/18 History Cholecalciferol (Vitamin D3) 4,000 unit PO DAILY 11/10/18 11/12/18 History [Vitamin D3] Cyanocobalamin (Vitamin B-12) 3,000 mcg PO DAILY 11/10/18 11/12/18 History [Vitamin B-12] Magnesium 400 mg PO DAILY 11/10/18 11/12/18 History Methocarbamol [Robaxin] 750 mg PO TID PRN 11/10/18 11/12/18 History Multivitamin [Multivitamins Adult 2 each PO DAILY 11/10/18 11/12/18 History Gummies] Allergies Allergy/AdvReac Type Severity Reaction Status Date / Time hydrocodone bitartrate AdvReac Nausea Verified 11/12/18 12:29 [From [facility]] morphine AdvReac Nausea Verified 11/12/18 12:29 Physical Exam Vitals: Vital Signs Pulse Resp BP Pulse Ox 11/12/18 12:30 80 16 160/83 99 General: The patient is alert and oriented. Patient is not sedated Patient answers all question appropriately. Cardiac: Heart is regular in rate and rhythm Respiratory: Clear to auscultation. No audible wheezes. Abdomen: Soft nontender nondistended. Musculoskeletal: Strength is normal bilaterally. Sensation is normal bilaterally. Straight leg raise is negative bilaterally. Straight leg raise is negative bilaterally no focal deficits and lower extremity is. No tenderness to palpation of the lumbosacral spine. Neurological: Reflexes are preserved and symmetric bilaterally. Results Comments: MRI of the lumbar spine reveals multiple compression fractures but most importantly moderate lumbar spinal stenosis at L4 5 and also lumbar spinal stenosis at L3 4. Assessment and Plan (1) Lumbar spinal stenosis Narrative/Plan: Plan of Care 1. Medications: Patient will treat her pain with Tylenol and uses this medication conservatively. 2. Interventions: I discussed with the patient performing a lumbar epidural steroid injection. She does have a history of osteoporosis and we will minimize her dosage of steroids for her. This will be done at the L4 5 interspace 3. Referrals: None 4. Testing: None 5. Follow-up: Lumbar epidural steroid injection L4 5 with a lower dose of steroids Current Visit: Yes Status: Acute Code(s): M48.061 - SPINAL STENOSIS, LUMBAR REGION WITHOUT NEUROGENIC DEVIN SNOMED Code(s): 49614510 PQRS Measure Charge Sheet Measure #130: Documentation of Current Meds in Medical Chart: Patient not eligible for medications to be documented Measure #226: Tobacco Use: Screen & Cessation Intervention: Pt not a tobacco user Measure #111: Pneumonia Vaccination: Pneumococcal vaccine NOT administered or previously given Measure #47: Advance Care Plan: Advance care planning discussed & documented, pt chose/unable to give Measure #412: Opioid Treatment Agreement: No documentation of signed opioid treatment agreement Measure #408: Opioid Therapy Follow-up Evaluation: Patient had NO f/u eval mini mum every 3 months during opioid therapy Measure #317: Preventitive Care & Scrn High Bld Press & F/U: Normal blood pressure, f/u not required Measure #128: Body Mass Index (BMI) Screening & Follow-up: BMI documented within normal parameters Measure #131: Pain Assessment & Follow-up: Pain positive & plan documented Measure #431: Unhealthy Alcohol Use Preventative Care & Scrn: Patient not identified as an unhealthy alcohol user PQRS Narrative: Smoking Status Former smoker Do You Want the Pneumonia Vaccine Up to Date Vaccine AT THIS TIME? Blood Pressure 160/83 Pain Intensity [Back] 4 Scale Used Numeric (1 - 10) Hx Alcohol Use (MH) Yes: occ Home Medications: Ambulatory Orders Acetaminophen [Tylenol Extra Strength] 1,000 mg PO Q6HR PRN 12/03/17 Biotin (Unknown Dose) 1 tab PO DAILY 11/10/18 Cholecalciferol (Vitamin D3) [Vitamin D3] 4,000 unit PO DAILY 11/10/18 Cyanocobalamin (Vitamin B-12) [Vitamin B-12] 3,000 mcg PO DAILY 11/10/18 Magnesium 400 mg PO DAILY 11/10/18 Methocarbamol [Robaxin] 750 mg PO TID PRN 11/10/18 Multivitamin [Multivitamins Adult Gummies] 2 each PO DAILY 11/10/18
== END | disposition home or self-care (01) ==
LOC: PNWHC3 12:25
PROVIDERS: ATTEND Pain Medicine Pain Medicine
DX: M48.061 Spinal stenosis, lumbar region without neurogenic claudication (principal); Z87.891 Personal history of nicotine dependence
CPT/HCPCS: 99211

== ENCOUNTER 2018-11-25 09:34 | Day surgery (SDC) | payer MEDICARE, BC ==
[2018-11-21 17:03] VITALS: BMI 20.3
[2018-11-25 09:53] VITALS: TEMP 97.8
--- NOTE | 2018-11-25 10:25 | P.PCN ---
Date of Procedure: 11/25/18 Description of Procedure: PREOPERATIVE DIAGNOSIS: 1-lumbar radiculopathy POSTOPERATIVE DIAGNOSIS: Lumbar radiculopathy PROCEDURE 1. Lumbar epidural steroid injection under fluoroscopic guidance at the 4/5 level. 2. Lumbar epidurogram. ANESTHESIA: Local with 1% lidocaine 5 ml EBL: Minimal PROCEDURE INDICATION: The patient with low back pain and radiculitis symptoms unresponsive to conservative treatment. Fluoroscopy was used to optimize visualization of the needle placement and to maximize safety. PROCEDURE DESCRIPTION / TECHNIQUE: The patient was seen and identified in the preoperative area. Risks, benefits, complications including but not limited to infections ,bleeding ,allergic reaction to the medications ,nerve damage and incomplete pain relief , as well as alternatives to the procedure were discussed with the patient. The patient agreed to proceed with the procedure and signed the consent. IV was started, and vital signs were stable. Patient was taken to the OR and time out was completed. The patient was placed in the prone position on procedure table and a pillow was placed under the abdomen to reduce lumbar lordosis. The lumbosacral area was prepped and draped in the usual sterile fashion. Vitals were closely monitored during the procedure. Using anterior-posterior fluoroscopy, the L 4/5 interlaminar space was identified and the skin over this site was marked and then infiltrated with 1% lidocaine subcutaneously. Subsequently, a 20-gauge Tuohy epidural needle was inserted and advanced toward the epidural space using the ``Loss of resistance technique and guided by AP and lateral fluoroscopy. The correct needle position in the epidural space was verified with the injection of 1 mL of the water soluble contrast dye Omnipaque 180 contrast and observing an excellent epidurogram with the epidural spread of the dye, after negative aspiration for blood and CSF and in the absence of paresthesias. Again after negative aspiration, a 2 ML's of preservative-free normal saline along with 40 mg of Depo-Medrol was injected and a washout of epidurogram was seen. Needle was withdrawn intact, skin was cleansed, and bandages were applied. COMPLICATIONS: None DISPOSITION / PLANS: The patient was placed in a supine position and transferred to the recovery area in a stable condition for observation. There was no evidence of lower extremity motor or sensory deficit after the procedure. Patient was discharged from the recovery room after meeting discharge criteria. Home discharge instructions were given to the patient by the staff. The patient was reexamined prior to discharge. We'll schedule to repeat this injection in 4 weeks' time. If the patient is doing well we will not repeat
[2018-11-25 10:30] VITALS: BP 148/79; PULSE 72; RESP 16
--- NOTE | 2018-11-25 11:13 | FL ---
Fluoroscopy INDICATION: Pain FINDINGS: Fluoroscopy time: 4 seconds. Images obtained: 1. IMPRESSIONS: 1. Documentation of fluoroscopy.
== END 2018-11-25 10:37 | disposition home or self-care (01) ==
LOC: ORPAIN 09:34
PROVIDERS: ATTEND Anesthesiology
DX: M54.16 Radiculopathy, lumbar region (principal); M48.061 Spinal stenosis, lumbar region without neurogenic claudication; M81.0 Age-related osteoporosis without current pathological fracture; I83.90 Asymptomatic varicose veins of unspecified lower extremity; Z86.711 Personal history of pulmonary embolism; Z90.49 Acquired absence of other specified parts of digestive tract; Z87.442 Personal history of urinary calculi; Z90.81 Acquired absence of spleen; Z79.01 Long term (current) use of anticoagulants; Z79.899 Other long term (current) drug therapy; Z87.891 Personal history of nicotine dependence; Z80.1 Family history of malignant neoplasm of trachea, bronchus and lung; Z88.5 Allergy status to narcotic agent
CPT/HCPCS: 62323; J1030; Q9966

== ENCOUNTER 2018-12-09 08:45 | Day surgery (SDC) | payer MEDICARE, BC ==
[2018-12-04 15:07] VITALS: BMI 20.3
[2018-12-09 09:06] VITALS: TEMP 97.6
[2018-12-09] MEDS ORDERED: LACTATED RINGERS 1,000 ML IV ONE (09:10)
[2018-12-09] MEDS ORDERED: IV FLUID CONTINUATION 1,000 ML IV ONE (09:40)
[2018-12-09 09:44] VITALS: RESP 16
--- NOTE | 2018-12-09 09:48 | FL ---
EXAMINATION TYPE: FL guided pain mgmt statistic DATE OF EXAM: 12/09/2018 CLINICAL HISTORY: Back pain TECHNIQUE: Fluoroscopy. COMPARISON: None. FINDINGS: Fluoroscopic guidance was provided during procedure performed by Dr. Liz. A total of 1 seconds of fluoroscopic time was utilized during the procedure and 1 spot images was acquired demon strating localization of the lumbar spine. IMPRESSION: As Above.
[2018-12-09 10:01] VITALS: BP 140/69; PULSE 68
--- NOTE | 2018-12-09 10:07 | P.PCN ---
Date of Procedure: 12/09/18 [place]est[place]: [facility] [place] of Procedure: PREOPERATIVE DIAGNOSIS: lumbar radiculopathy POSTOPERATIVE DIAGNOSIS: Lumbar radiculopathy PROCEDURE 1. Lumbar epidural steroid injection under fluoroscopic guidance at the L4 5 lev el. 2. Lumbar epidurogram. ANESTHESIA: Local with 1% lidocaine 5 ml and 1 mg of Versed EBL: Minimal PROCEDURE INDICATION: The patient with low back pain and radiculitis symptoms unresponsive to conservative treatment. Fluoroscopy was used to optimize visualization of the needle placement and to maximize safety. PROCEDURE DESCRIPTION / TECHNIQUE: The patient was seen and identified in the preoperative area. Risks, benefits, complications including but not limited to infections ,bleeding ,allergic reaction to the medications, nerve damage and incomplete pain relief , as well as alternatives to the procedure were discussed with the patient. The patient agreed to proceed with the procedure and signed the consent. IV was started, and vital signs were stable. Patient was taken to the OR and time out was completed. The patient was placed in the prone position on procedure table and a pillow was placed under the abdomen to reduce lumbar lordosis. The lumbosacral area was prepped and draped in the usual sterile fashion. Vitals were closely monitored during the procedure. Using anterior-posterior fluoroscopy, the L4 5 interlaminar space was identified and the skin over this site was marked and then infiltrated with 1% lidocaine subcutaneously. Subsequently, a 20-gauge Tuohy epidural needle was inserted and advanced toward the epidural space using the Loss of resistance technique and guided by AP and lateral fluoroscopy. The correct needle position in the epidural space was verified with the injection of 1 mL of the water soluble contrast dye Omnipaque 180 contrast and observing an excellent epidurogram with the epidural spread of the dye, after negative aspiration for blood and CSF and in the absence of paresthesias. Again after negative aspiration, a 3 ml mixture containing 40mg of depomedrol and 2 ml of preservative free Normal Saline was injected and a washout of epidurogram was seen. Needle was withdrawn intact, skin was cleansed, and bandages were applied. COMPLICATIONS: None DISPOSITION / PLANS: The patient was placed in a supine position and transferred to the recovery area in a stable condition for observation. There was no evidence of lower extremity motor or sensory deficit after the procedure. Patient was discharged from the recovery room after meeting discharge criteria. Home discharge instructions were given to the patient by the staff. The patient was reexamined prior to discharge. The patient will follow up as directed.
== END 2018-12-09 10:29 | disposition home or self-care (01) ==
LOC: ORPAIN 08:45
PROVIDERS: ATTEND Hospitalist
DX: M54.16 Radiculopathy, lumbar region (principal); Z88.5 Allergy status to narcotic agent
CPT/HCPCS: 62323; J2250; J1030; Q9966

== ENCOUNTER 2019-01-26 08:23 | Day surgery (SDC) | payer MEDICARE, BC ==
[2019-01-20 15:51] VITALS: BMI 20.3
[2019-01-26] MEDS ORDERED: LACTATED RINGERS 1,000 ML IV SCH (08:38)
[2019-01-26 08:50] VITALS: TEMP 97.9
[2019-01-26] MEDS ORDERED: LIDOCAINE 1% 20 ML VIAL (10MG/ML) FOR IV START INTRADERMA ONE (09:00)
--- NOTE | 2019-01-26 09:42 | P.PCN ---
Date of Procedure: 01/26/19 Procedure(s) Performed: PREOPERATIVE DIAGNOSIS : Lumbar spondylosis with Facet Arthropathy without myelopathy POSTOPERATIVE DIAGNOSIS: same PROCEDURE: Diagnostic lumbar medial branch block with fluoroscopy at bilateral L3-L4, L4-L5, L5-S1 ANESTHESIA: Local anesthetic; Versed 1 mg Surgeon: Alana Simpson MD PROCEDURE INDICATION: Lumbar spondylosis PROCEDURE DESCRIPTION: the patient was seen and identified in the preop holding area , risks and benefits and possible complications of the procedure and alternative were discussed with the patient, and the patient agreed to proceed with the procedure and signed the consent IV was started and vital signs monitored during the procedure and fluoroscopy was used to maximize the benefit and accuracy of the needle placement, and sedation was given to decrease patient anxiety, patient was taken to the procedure room and placed in prone position. Vital signs monitored and the back was prepped. Under strict sterile technique using AP and oblique fluoroscopy ,the junction of the transverse process and the superior articulating process of the L3- 4 , L4- 5, and L5-S1 vertebra which corresponding to the fluoroscopy image of the eye of the Refugio dog on the block side for the medial branches and subsequently , after local infiltration of skin and subcutaneous tissues with lidocaine 1% 0.2 mL at each level ,then a 25-gauge Quincke-type needle was placed at the junction of the base of the transverse process and the superior articular process at the appropriate level, and the needle was advanced until the periosteum contacted, needle placement confirmed with AP and oblique view. After appropriate needle placement confirmed, and after negative aspiration, 0.2 mL of Isovue 200 was used without evidence of vascular uptake. Then, 0.5 mL of lido hermelinda 4% was injected at each level and the needle subsequently removed. At the end of the procedure and the needles removed and a bandage applied after the skin was cleaned the cleaning solution patient taken to recovery room in stable condition and monitors in the recovery room for 20-30 minutes and discharged home in stable condition after discharge criteria met and patient will follow up will be for repeat procedure in 2 weeks. The patient will call us in 1-2 days to let us know how this procedure worked. Unfortunately, her telephone service is not functioning so we will be unable to reach her. EBL: Minimal COMPLICATION: None. No steroid was used for this procedure.
[2019-01-26] MEDS ORDERED: FLUID CONTINUATION IV ONE (09:46)
[2019-01-26 10:10] VITALS: BP 164/76; PULSE 74; RESP 16
--- NOTE | 2019-01-26 13:29 | FL ---
EXAMINATION TYPE: FL guided pain mgmt statistic DATE OF EXAM: 01/26/2019 FLUOROSCOPY Fluoroscopy time of 16 seconds was used during bilateral lumbar facet blocks. 8 image/s document/s t he procedure.
== END 2019-01-26 10:16 | disposition home or self-care (01) ==
LOC: ORPAIN 08:23
PROVIDERS: ATTEND Anesthesiology
DX: M47.816 Spondylosis without myelopathy or radiculopathy, lumbar region (principal); M51.36 Other intervertebral disc degeneration, lumbar region; M48.061 Spinal stenosis, lumbar region without neurogenic claudication; M48.56XA Collapsed vertebra, not elsewhere classified, lumbar region, initial encounter for fracture; Z87.891 Personal history of nicotine dependence; Z79.899 Other long term (current) drug therapy
CPT/HCPCS: 64493; 64494; 64495; J2250; Q9966; 99152

== ENCOUNTER 2019-02-09 08:24 | Day surgery (SDC) | payer MEDICARE, BC ==
[2019-02-05 09:24] VITALS: BMI 20.3
[~2019-02-09 08:24] MED LIST changes: -AMPICILLIN 1,000 MG in SODIUM CHLORIDE 0.9% 50 ML IVPB ONE; -GENTAMICIN IN NACL ISO-OSM PMX 80 MG in SALINE 1 100ML.BAG IVPB ONE; -LIDOCAINE 1% 20 ML VIAL (10MG/ML) FOR IV START INTRADERMA PRN; -ONDANSETRON 4 MG/2 ML VIAL IVP ONE; -fentaNYL (PF) 50 MCG/ML 2 ML AMP IV PRN
[2019-02-09 09:19] VITALS: TEMP 97.9
[2019-02-09 09:19] LABS: Glucose,Whole Blood 86 mg/dL (75-99)
--- NOTE | 2019-02-09 10:12 | P.PCN ---
Date of Procedure: 02/09/19 Procedure(s) Performed: PREOPERATIVE DIAGNOSIS : Lumbar spondylosis with Facet Arthropathy without myelopathy POSTOPERATIVE DIAGNOSIS: same PROCEDURE: Diagnostic lumbar medial branch block #2 with fluoroscopy at bilateral L3, L4, L5, sacral ala for facet joints L3-L4, L4-L5, L5-S1 ANESTHESIA: Local anesthetic; Versed 1 mg Surgeon: Alana Simpson MD PROCEDURE INDICATION: Lumbar spondylosis Fluoroscopy was used for this procedure and fluoroscopic images were saved patient's chart. PROCEDURE DESCRIPTION: the patient was seen and identified in the preop holding area , risks and benefits and possible complications of the procedure and alternative were discussed with the patient, and the patient agreed to proceed with the procedure and signed the consent IV was started and vital signs monitored during the procedure and fluoroscopy was used to maximize the benefit and accuracy of the needle placement, and sedation was given to decrease patient anxiety, patient was taken to the procedure room and placed in prone position. Vital signs monitored and the back was prepped. Under strict sterile technique using AP and oblique fluoroscopy ,the junction of the transverse process and the superior articulating process of the L3 , L4, and L5 vertebra as well as the sacral ala which corresponding to the fluoroscopy image of the eye of the Refugio dog on the block side for the medial branches and subsequently , after local infiltration of skin and subcutaneous tissues with lidocaine 1% 0.2 mL at each level ,then a 25-gauge Quincke-type needle was placed at the junction of the base of the transverse process and the superior articular process at the appropriate level, and the needle was advanced until the periosteum contacted, needle placement confirmed with AP and oblique view. After appropriate needle placement confirmed, and after negative aspiration, 0.2 mL of Isovue 200 was used without evidence of vascular uptake. Then, 0.5 mL of ropivacaine 0.5% was injected at each level and the needle subsequently removed. At the end of the procedure and the needles removed and a bandage applied after the skin was cleaned the cleaning solution patient taken to recovery room in stable condition and monitors in the recovery room for 20-30 minutes and discharged home in stable condition after discharge criteria met. The patient will follow up in clinic in 2 weeks. EBL: Minimal COMPLICATION: None. Comments: Patient reported 75% relief for 4 hours following first diagnostic block No steroid was used for this procedure.
[2019-02-09] MEDS ORDERED: LACTATED RINGERS 1,000 ML IV ONE (10:17)
[2019-02-09 10:20] VITALS: RESP 16
[2019-02-09 11:01] VITALS: BP 146/68; PULSE 64
--- NOTE | 2019-02-10 10:59 | FL ---
Fluoroscopy HISTORY: Pain 11 seconds fluoroscopy time supplied to the referring clinician. 5 intraoperative C-arm images docum ent the procedure. See dictated report from anesthesia.
--- NOTE | 2019-02-11 09:43 | CDI ---
Moderate sedation with versed PLUS local anesthesia with lidocaine 1% was used Outpatient Documentation Clarification Form Date: 02/11/19 CDS/Senior Radiation Protection Technician Name: Zonia Forbes Phone: If any questions, call Ellen Barragan Buffet Manager at [phone] Patient Name: Celeste Naranjo Admit Date: 02/09/19 Discharge Date: 02/09/19 ATTENTION: The [facility] Coding Staff appreciate your assistance in clarifying documentation. Please respond to the clarification below the line at the bottom and electronically sign. The [facility] Coding staff will review the response and follow-up if needed. Please note: Queries are made part of the Legal Health Record. If you have any questions, please contact the Buffet Manager. Dear Dr. Simpson, Please provide clarification for the conflicting documentation as to the type of sedation provided the patient. The Operative Report documents local anesthesia with versed. On the Pain Procedure Record it is documented that moderate/conscious sedation was used. Please clarify Thank you for your kind consideration. MTDD
== END 2019-02-09 11:00 | disposition home or self-care (01) ==
LOC: ORPAIN 08:24
PROVIDERS: ATTEND Anesthesiology
DX: G89.29 Other chronic pain (principal); M47.816 Spondylosis without myelopathy or radiculopathy, lumbar region; M51.36 Other intervertebral disc degeneration, lumbar region; M48.061 Spinal stenosis, lumbar region without neurogenic claudication; Z90.81 Acquired absence of spleen; Z87.891 Personal history of nicotine dependence
CPT/HCPCS: 64493; 64494; 64495; J2250; Q9966; 99152

== ENCOUNTER → 2019-02-18 | Outpatient (CLI) | payer MEDICARE, BC ==
--- NOTE | 2019-02-18 16:46 | P.PAINPG ---
Subjective Progress Note Date: 02/18/19 This is a follow-up visit for this 79-year-old patient who has a history of chronic low back pain and has been diagnosed with lumbar spondylosis. She recently underwent lumbar diagnostic medial branch blocks 2. She reports 100% pain relief for about one day following each procedure. Her pain is unchanged in nature and character, she reports that it is worse on the right side. Review of systems is negative for chest pain, shortness of breath, new onset weakness, numbness/tingling, abdominal pain, malaise, fever, night sweats, chills, homicidal or suicidal ideation, or bowel or bladder incontinence. Objective Physical exam: Vitals: Reviewed in EMR GENERAL: Well appearing, in no acute distress PSYCH: Mood and affect is appropriate. Awake, alert, and oriented SKIN: Skin color, texture, turgor normal, no rashes or lesions HEENT: Normocephalic, atraumatic. EOM intact CV: No pedal edema RESP: Respirations are unlabored, no audible wheezing GI: Abdomen non-distended MUSCULOSKELETAL: Bilateral upper and lower extremity strength is normal and symmetric. No atrophy or tone abnormalities are noted. Lumbar spine: Straight leg raising in the sitting position is negative for radicular pain. No pain to palpation over the lumbar spine and paraspinous muscles. Positive for pain with facet loading and back extension/rotation. Extremely limited lumbar extension Buttocks: No pain to palpation over the PSIS, sacroiliac joint maneuvers are negative for pain. Extremities: Peripheral joint ROM is full and pain free without obvious instability or laxity in all four extremities. No edema or skin discolorations noted. Gait: Gait is normal NEUR: Bilateral lower extremity coordination and muscle stretch reflexes are physiologic and symmetric. Negative clonus bilaterally. No loss of sensation is noted. Assessment and Plan Plan: Assessment and plan= chronic low back pain secondary to lumbar degenerative disc disease and lumbar compression fractures, and lumbar spinal stenosis And lumbar spondylosis with lumbar facet arthropathy, patient reports 100% pain relief for one day following diagnostic lumbar medial branch blocks. We will schedule her for radiofrequency ablation to the lumbar area at L3, L4, L5 medial branches for facets L4-5 and L5-S1 , we'll start with the right side first. Risks and benefits of the procedure were discussed with the patient and she would like to proceed. I also encouraged her to continue exercising in the pool. I provided her with an exercise handout for lumbar strengthening and core strengthening exercises. Follow-up: For procedure Time with Patient: Less than 30 Objective - Vital Signs Vital signs: Vital Signs Temp Pulse 80 02/18/19 12:39 Resp 18 02/18/19 12:39 BP 145/67 02/18/19 12:39 Pulse Ox 99 02/18/19 12:39 Intake & Output 02/17/19 02/18/19 02/18/19 18:59 06:59 18:59 Weight 52.163 kg PQRS Measure Charge Sheet Measure #130: Documentation of Current Meds in Medical Chart: Patient's medications documented in chart Measure #226: Tobacco Use: Screen & Cessation Intervention: Pt screened for tobacco use AND intervention given Measure #111: Pneumonia Vaccination: Pneumococcal vaccine administered or previously received Measure #47: Advance Care Plan: Advance care planning discussed & documented, pt chose/unable to give Measure #412: Opioid Treatment Agreement: No documentation of signed opioid treatment agreement Measure #317: Preventitive Care & Scrn High Bld Press & F/U: Pre-hypertensive or hypertensive BP documented, pt will f/u with PCP Measure #128: Body Mass Index (BMI) Screening & Follow-up: BMI documented within normal parameters Measure #131: Pain Assessment & Follow-up: Pain positive & plan documented, Follow-up scheduled Measure #431: Unhealthy Alcohol Use Preventative Care & Scrn: Patient not identified as an unhealthy alcohol user PQRS Narrative: Smoking Status Former smoker Blood Pressure 145/67 Pain Intensity [Back] 3 Scale Used Numeric (1 - 10) Hx Alcohol Use (MH) Yes: occ Home Medications: Ambulatory Orders Biotin 5 mg PO DAILY 11/10/18 Cholecalciferol (Vitamin D3) [Vitamin D3] 4,000 unit PO DAILY 11/10/18 Cyanocobalamin (Vitamin B-12) [Vitamin B-12] 3,000 mcg PO DAILY 11/10/18 Magnesium 400 mg PO DAILY 11/10/18 Multivitamin [Multivitamins Adult Gummies] 2 each PO DAILY 11/10/18 Acetaminophen [Tylenol] 650 mg PO Q4H PRN 02/05/19 Controlled Substance Measures - Controlled Substance Measures Is patient prescribed a controlled substance at discharge?: No
== END ==
CPT/HCPCS: 99211

== ENCOUNTER 2019-03-02 09:00 | Day surgery (SDC) | payer MEDICARE, BC ==
[2019-02-25 10:01] VITALS: BMI 20.3
[2019-03-02 10:06] VITALS: RESP 16; TEMP 98.8
[2019-03-02] MEDS ORDERED: IV FLUID CONTINUATION 1,000 ML IV ONE (10:44)
--- NOTE | 2019-03-02 10:53 | FL ---
EXAMINATION TYPE: FL guided pain mgmt statistic DATE OF EXAM: 03/02/2019 HISTORY: Pain 4 IMAGES, 8 SEC FL
--- NOTE | 2019-03-02 10:56 | P.PCN ---
Date of Procedure: 03/02/19 Procedure(s) Performed: PREOPERATIVE DIAGNOSIS: Lumbar Spondylosis POSTOPERATIVE DIAGNOSIS: Same PROCEDURES: Radiofrequency ablation of the right L3, L4, L5 medial branches with fluoroscopic guidance SURGEON: Alana Simpson MD. ANESTHESIA: Lidocaine 1% 5 mL, Moderate sedation with intravenous Versed and fentanyl EBL: Minimal Fluoroscopy was used for the procedure and images were saved in the radiology portion of the chart. PROCEDURE INDICATION: The patient with low back pain secondary to lumbar facet arthropathy who had more than 50% relief of pain with previous diagnostic lumbar medial branch block X2. PROCEDURE DESCRIPTION / TECHNIQUE: The patient was seen and identified in the preoperative area. Risks, benefits, complications, including but not limited to risk of infection ,bleeding , allergic reactions to the medications and incomplete pain relief , and alternatives were discussed with the patient, the patient agreed to proceed with the procedure and signed the consent. IV was started. The operative site was marked. Patient was taken to the OR and time out was completed. The patient was placed in the prone position on the procedure table. The lumbar area was prepped and draped in the usual sterile fashion. . Vital signs were closely monitored during the procedure .IV sedation was used during the procedure to decrease patients anxiety. Using AP and then oblique fluoroscopy, the "eye of the [place] dog" corresponding to the connection between the superior and transverse articular processes of the right L4 and L5 as well as the sacral ala were identified, marked, and localized with 1% lidocaine. Subsequently, an 18 guage 100 mm radiofrequency cannula with a 10-mm active tip was advanced guided by fluoroscopy to the identified target at each site. Needle positioning was confirmed on AP, oblique and lateral fluoroscopy. Motor testing at 2.5 Hz was done with paraspinal muscle stimulation only, and no radicular symptoms down the legs. Then 1 mL of 4% lidocaine was injected in each site. Radiofrequency thermocoagulation at 80 degrees celsius for 90 seconds was then performed. [place] were removed. Sterile dressings were applied. COMPLICATIONS: No acute complications. DISPOSITION / PLANS: The patient was placed in a supine position and transfe rred to the recovery area in a stable condition for observation and was discharged from the recovery room after meeting discharge criteria. Home discharge instructions given to the patient by the staff. The patient will follow up in clinic in 4 weeks.
[2019-03-02 11:02] VITALS: BP 135/64; PULSE 74
== END 2019-03-02 11:21 | disposition home or self-care (01) ==
LOC: ORPAIN 09:00
PROVIDERS: ATTEND Anesthesiology
DX: G89.29 Other chronic pain (principal); M47.9 Spondylosis, unspecified; M51.36 Other intervertebral disc degeneration, lumbar region; M48.061 Spinal stenosis, lumbar region without neurogenic claudication; Z87.891 Personal history of nicotine dependence; Z79.899 Other long term (current) drug therapy
CPT/HCPCS: 64635; 64636; J2250; J3010; 99152

== ENCOUNTER → 2019-03-16 | Day surgery (SDC) | payer MEDICARE, BC ==
[2019-03-11 09:00] VITALS: BMI 20.3
--- NOTE | 2019-03-16 10:25 | P.PN ---
Progress Note - Text Progress Note Date: 03/16/19 This is 79 years old female with a chronic history of severe low back pain she is diagnosed with lumbar degenerative disc disease, compression fracture of the lumbar spine, and lumbar spondylosis with lumbar facet arthropathy, patient was scheduled to have radiofrequency ablation of the left side medial branches , patient reported that she had 0 pain on the left side,, a few weeks ago we did radiofrequency ablation of the medial branch on the right side, currently suha barnes complaining of some pain on the right side, she denies any motor or sensory deficit, she denies any fever or night sweats, patient will be referred to physical therapy evaluation and treatment, patient will be seen in the pain clinic in couple of weeks, for reevaluation
== END ==
LOC: ORPAIN 09:21
PROVIDERS: ATTEND Specialist
DX: G89.29 Other chronic pain (principal); Z53.8 Procedure and treatment not carried out for other reasons; M51.36 Other intervertebral disc degeneration, lumbar region; M47.9 Spondylosis, unspecified

== ENCOUNTER 2019-12-28 09:23 | Observation (INO) | payer MEDICARE, BC ==
--- NOTE | 2019-12-28 09:42 | ED ---
General Adult HPI - General Chief complaint: Neuro Symptoms/Deficit Stated complaint: numbness LT hand leg and foot Time Seen by Provider: 12/28/19 09:32 Source: patient, RN notes reviewed Mode of arrival: ambulatory Limitations: no limitations - History of Present Illness Initial comments: Patient is a pleasant 79-year-old female presenting to the emergency Department with complaints of paresthesias. Patient noticed symptoms 2 days ago, somewhat worse yesterday and then worse today. Patient did have a mild fall 2 days prior to onset of symptoms. No head injury or loss of consciousness. Patient denies any weakness. No speech problems. No confusion. Patient does have some paresthesias to her left leg however this is more than that. Paresthesias to left arm and left lip are new. - Related Data Home Medications Medication Instructions Recorded Confirmed Biotin 5 mg PO DAILY 11/10/18 03/11/19 Cholecalciferol (Vitamin D3) 4,000 unit PO DAILY 11/10/18 03/11/19 [Vitamin D3] Cyanocobalamin (Vitamin B-12) 3,000 mcg PO DAILY 11/10/18 03/11/19 [Vitamin B-12] Magnesium 400 mg PO DAILY 11/10/18 03/11/19 Multivitamin [Multivitamins Adult 2 each PO DAILY 11/10/18 03/11/19 Gummies] Acetaminophen [Tylenol] 650 mg PO Q4H PRN 02/05/19 03/11/19 Allergies Allergy/AdvReac Type Severity Reaction Status Date / Time hydrocodone bitartrate AdvReac Nausea Verified 12/28/19 09:27 [From [place]] morphine AdvReac Nausea Verified 12/28/19 09:27 Review of Systems ROS Statement: Those systems with pertinent positive or pertinent negative responses have been documented in the HPI. ROS Other: All systems not noted in ROS Statement are negative. Constitutional: Denies: fever Eyes: Denies: eye pain ENT: Denies: ear pain Respiratory: Denies: cough Cardiovascular: Denies: chest pain Endocrine: Denies: fatigue Gastrointestinal: Denies: abdominal pain Genitourinary: Denies: dysuria Musculoskeletal: Denies: back pain Skin: Denies: rash Neurological: Reports: as per HPI, paresthesias. Denies: headache, weakness, confusion Past Medical History Past Medical History: Blood Disorder, GERD/Reflux, Pulmonary Embolus (PE) Additional Past Medical History / Comment(s): states unsure of blood disorder- sees a specialist for it. bowel obstruction, "short bowel syndrome"(frequent diarrhea). KIDNEY STONES X3. VARICOSE VEINS. HX INJURY TO BACK, HAS FRACTURES & BULGING DISCS. OSTEOPOROSIS, right shoulder pain History of Any Multi-Drug Resistant Organisms: None Reported Past Surgical History: Appendectomy, Bowel Resection, Orthopedic Surgery, Tonsillectomy Additional Past Surgical History / Comment(s): splenectomy 2018, bowel resection for twisted bowel, nohelia shoulder arthroscopy, 12/06/2017 right nephrolitomy with nephrostomy tube, 06/25/18 lt nephrolithotomy, & LT KIDNEY STONE REMOVAL 2014. Past Anesthesia/Blood Transfusion Reactions: Postoperative Nausea & Vomiting (PONV) Additional Past Anesthesia/Blood Transfusion Reaction / Comment(s): "I needed a little more anesthesia with last procedure so I was not jumping around" Past Psychological History: No Psychological Hx Reported Smoking Status: Former smoker Past Alcohol Use History: Occasional Past Drug Use History: None Reported - Past Family History Mother Family Medical History: No Reported History Father Family Medical History: Cancer Additional Family Medical History / Comment(s): LUNG CA General Exam Limitations: no limitations General appearance: alert, in no apparent distress Head exam: Present: normocephalic Eye exam: Present: normal appearance, PERRL, EOMI ENT exam: Present: normal oropharynx Neck exam: Present: normal inspection Respiratory exam: Present: normal lung sounds bilaterally Cardiovascular Exam: Present: regular rate, normal rhythm GI/Abdominal exam: Present: soft. Absent: tenderness Extremities exam: Present: normal inspection Neurological exam: Present: alert, oriented X3, CN II-XII intact. Absent: motor sensory deficit Expanded Neurological exam: Present: protecting the airway Patient oriented to: Present: person, place, time Speech: Present: fluid speech Cranial nerves: EOM's Intact: Normal, Facial Sensation: Normal Sensory exam: Upper Extremity Light Touch: Normal, Lower Extremity Light Touch: Normal Motor strength exam: RUE: 5, LUE: 5, RLE: 5, LLE: 5 Eye Response: (4) open spontaneously Motor Response: (6) obeys commands Verbal Response: (5) oriented Psychiatric exam: Present: normal affect, normal mood Skin exam: Present: normal color Course Vital Signs 12/28/19 09:27 Temperature 97.7 F Pulse Rate 69 Respiratory 18 Rate Blood Pressure 150/67 O2 Sat by Pulse 100 Oximetry EKG Findings - EKG Comments: EKG Findings:: Normal sinus rhythm 64. PA 122. QRS 78. QT 402. QTC 414. Low QRS voltage. Normal axis. No acute ST change. Medical Decision Making - Medical Decision Making Patient reevaluated and unchanged. Patient and family updated on results and plan. Patient has left-sided paresthesias however there is concern for possible small stroke or TIA. Case was discussed in detail with Dr. Jett, who will admit for Dr. Walsh. - Lab Data Result diagrams: 12/28/19 08:56 12/28/19 08:56 Lab Results 12/28/19 12/28/19 12/28/19 Range/Units 08:56 08:56 08:56 WBC 9.1 (3.8-10.6) k/uL RBC 3.38 L (3.80-5.40) m/uL Hgb 10.9 L (11.4-16.0) gm/dL Hct 33.3 L (34.0-46.0) % MCV 98.5 (80.0-100.0) fL MCH 32.2 (25.0-35.0) pg MCHC 32.7 (31.0-37.0) g/dL RDW 13.5 (11.5-15.5) % Plt Count 353 (150-450) k/uL Neutrophils % (Manual) 44 % Band Neutrophils % 1 % Lymphocytes % (Manual) 36 % Monocytes % (Manual) 11 % Eosinophils % (Manual) 7 % Basophils % (Manual) 1 % Neutrophils # (Manual) 4.00 (1.3-7.7) k/uL Lymphocytes # (Manual) 3.28 (1.0-4.8) k/uL Monocytes # (Manual) 1.00 (0-1.0) k/uL Eosinophils # (Manual) 0.64 (0-0.7) k/uL Basophils # (Manual) 0.09 (0-0.2) k/uL Nucleated RBCs 0 (0-0) /100 WBC Manual Slide Review Performed Poikilocytosis (manual Present PT 10.6 (9.0-12.0) sec INR 1.0 (<1.2) APTT 25.1 (22.0-30.0) sec Sodium 137 (137-145) mmol/L Potassium 4.8 (3.5-5.1) mmol/L Chloride 111 H (98-107) mmol/L Carbon Dioxide 16 L (22-30) mmol/L Anion Gap 10 mmol/L BUN 52 H (7-17) mg/dL Creatinine 2.68 H (0.52-1.04) mg/dL Est GFR (CKD-EPI)AfAm 19 (>60 ml/min/1.73 sqM) Est GFR (CKD-EPI)NonAf 17 (>60 ml/min/1.73 sqM) Glucose 92 (74-99) mg/dL Calcium 9.6 (8.4-10.2) mg/dL Total Bilirubin 0.8 (0.2-1.3) mg/dL AST 45 H (14-36) U/L ALT 21 (4-34) U/L Alkaline Phosphatase 86 (38-126) U/L Total Protein 7.4 (6.3-8.2) g/dL Albumin 4.2 (3.5-5.0) g/dL - Radiology Data Radiology results: report reviewed (Computed tomography scan of the head shows no definitive process. Atrophy and nonspecific white matter changes.), image reviewed (Chest x-ray does show multiple medical lumbar compression deformities. Indeterminate age. Atelectasis.) Disposition Clinical Impression: Transient cerebral ischemia Disposition: ADMITTED IP TO THIS HOSP Is patient prescribed a controlled substance at d/c from ED?: No Referrals: Adrian Walsh MD [Primary Care Provider] - 1-2 days Decision Time: 11:02
[2019-12-28 10:22] LABS: Albumin 4.2 g/dL (3.5-5.0); Calcium 9.6 mg/dL (8.4-10.2); Potassium 4.8 mmol/L (3.5-5.1); Total Bilirubin 0.8 mg/dL (0.2-1.3); Total Protein 7.4 g/dL (6.3-8.2)
[2019-12-28 10:24] LABS: Partial Thromboplastin Time 25.1 sec (22.0-30.0); Prothrombin Time 10.6 sec (9.0-12.0)
--- NOTE | 2019-12-28 10:27 | XR ---
EXAMINATION TYPE: XR chest 2V DATE OF EXAM: 12/28/2019 COMPARISON: 03/13/2012 chest x-ray and CT dated 09/03/2015. HISTORY: Altered mental status, right-sided numbness and history of fall TECHNIQUE: Frontal and lateral views of the chest are obtained. FINDINGS: There is no focal air space opacity, pleural effusion, or pneumothorax seen. Increased ret rosternal airspace on the lateral view suggests underlying COPD. Linear scarring and/or atelectasis i s seen at the right costophrenic angle and is platelike, horizontally oriented. The cardiac silhouett e size is within normal limits. Right humeral anchor noted from prior rotator cuff repair. Surgical clips the left upper quadrant. There is diffuse osseous demineralization. There is chronic compression deformity of approximately T1 2 however at approximately T10 and T7 there are age indeterminant compression deformities not seen on the prior CT of 09/03/2015. There is diffuse background osseous demineralization. IMPRESSION: 1. Multiple thoracolumbar compression deformities, some of which are age indeterminant not seen on th e prior of 2015. Correlate for point tenderness. 2. Linear scarring and/or subsegmental atelectasis at the right costophrenic angle.
[2019-12-28 10:34] LABS: HCT 33.3 % (34.0-46.0); HGB 10.9 gm/dL (11.4-16.0); MCH 32.2 pg (25.0-35.0); MCHC 32.7 g/dL (31.0-37.0); MCV 98.5 fL (80.0-100.0); Mean Platelet Volume 7.7; Platelet Count 353 k/uL (150-450); RBC 3.38 m/uL (3.80-5.40); RDW 13.5 % (11.5-15.5); WBC 9.1 k/uL (3.8-10.6)
--- NOTE | 2019-12-28 10:37 | CT ---
EXAMINATION TYPE: CT brain wo con DATE OF EXAM: 12/28/2019 COMPARISON: None HISTORY: Neuro deficit, acute, stroke suspected CT DLP: 1150.4 mGycm Automated exposure control for dose reduction was used. TECHNIQUE: CT scan of the head is performed without contrast. FINDINGS: There is no acute intracranial hemorrhage or midline shift identified. There is diffuse v entricular and sulcal prominence consistent with diffuse age-related cerebral atrophy. There is low- attenuation in the periventricular white matter most commonly related to chronic small vessel ischemi c change. The globes are intact. Mild mucosal thickening in the ethmoid sinuses. Remaining paranasal sinuses and mastoid air cells are well aerated. Mild rightward nasal septal deviation. IMPRESSION: 1. No acute intracranial hemorrhage or midline shift. MRI could be performed to increase sensitivity in detection of acute stroke in this patient with neurologic deficit. 2. There is diffuse age-related cerebral atrophy and nonspecific white matter change, predominating i n the periatrial white matter bilaterally that is likely on the basis of chronic microangiopathy.
[2019-12-28 10:57] LABS: Band Neutrophils % 1 %; Basophils # (M) 0.09 k/uL (0-0.2); Eosinophils # (M) 0.64 k/uL (0-0.7); Lymphocytes # (M) 3.28 k/uL (1.0-4.8); Neutrophils % (M) 44 %; Nucleated Red Blood Cells 0 /100 WBC (0-0); Poikilocytosis (M) Present; Total Cells Counted 100
[2019-12-28] MEDS ORDERED: ASPIRIN 325 MG TAB PO STA (11:03)
[2019-12-28] MEDS ORDERED: MAG HYDROX/AL HYDROX/SIMETH 30 ML CUP PO PRN (12:42)
[2019-12-28] MEDS ORDERED: ALPRAZolam 0.25 MG TAB PO PRN (12:42)
[2019-12-28] MEDS ORDERED: CALCIUM CARBONATE 500 MG CHEWABLE PO PRN (12:42)
[2019-12-28] MEDS ORDERED: ONDANSETRON 4 MG/2 ML VIAL IVP PRN (12:42)
[2019-12-28] MEDS ORDERED: NALOXONE 0.4 MG/ML 1 ML VIAL IV PRN (12:42)
[2019-12-28] MEDS ORDERED: TEMAZEPAM 15 MG CAP PO PRN (12:42)
[2019-12-28] MEDS ORDERED: MELATONIN 3 MG TABLET PO PRN (12:42)
[2019-12-28] MEDS ORDERED: ACETAMINOPHEN TAB 325 MG TAB PO PRN (12:42)
[2019-12-28 12:52] VITALS: RESP 16
--- NOTE | 2019-12-28 14:55 | US ---
EXAMINATION TYPE: US carotid duplex BILAT DATE OF EXAM: 12/28/2019 COMPARISON: NONE CLINICAL HISTORY: Stenosis. Numbness in leg arm and llip EXAM MEASUREMENTS: RIGHT: Peak Systolic Velocity (PSV) cm/sec ----- Right CCA: 95.3 ----- Right ICA: 213.5 ----- Right ECA: 68.8 ICA/CCA ratio: 2.2 RIGHT: End Diastole cm/sec ----- Right CCA: 27.0 ----- Right ICA: 74.1 ----- Right ECA: 0 LEFT: Peak Systolic Velocity (PSV) cm/sec ----- Left CCA: 97.9 ----- Left ICA: 154.9 ----- Left ECA: 121.4 ICA/CCA ratio: 1.6 LEFT: End Diastole cm/sec ----- Left CCA: 34.9 ----- Left ICA: 48.5 ----- Left ECA: 24.8 VERTEBRALS (direction of flow): Right Vertebral: Antegrade Left Vertebral: Antegrade Rhythm: Normal IMPRESSION: 1. Stenosis of 50-69% within the right internal carotid artery. 2. Suspected stenosis of 50-69% within the left internal and external carotid arteries. CTA neck cou ld confirm this finding. Criteria for Assigning % of Stenosis / Diameter reduction (Estimation based on the indirect measurements of the internal carotid artery velocities (ICA PSV). 1. Normal (no stenosis)=ICA PSV < 125 cm/s: ratio < 2.0: ICA EDV<40 cm/s. 2. Less than 50% stenosis=ICA PSV < 125 cm/s: ratio < 2.0: ICA EDV<40 cm/s. 3. 50 to 69% stenosis=ICA PSV of 125 to 230 cm/s: ration 2.0 ? 4.0: ICA EDV 40-100 cm/s. 4. Greater than 70% stenosis to near occlusion= ICA PSV > 230 cm/s: ratio > 4.0: ICA EDV > 100 cm/s. 5. Near occlusion= ICA PSV velocities may be low or undetectable: variable ratio and ICA EDV. 6. Total occlusion=unable to detect flow.
[2019-12-28 15:19] VITALS: BMI 18.6
[2019-12-28] MEDS: PANTOPRAZOLE 40 MG TABLET PO SCH (17:15)
[2019-12-28] MEDS: SODIUM CHLORIDE 0.9% 1,000 ML IV SCH ×2 (17:16→21:17)
[2019-12-28] MEDS: APIXABAN 5 MG TAB PO SCH (21:17)
--- NOTE | 2019-12-28 22:29 | P.HPIM ---
History of Present Illness H&P Date: 12/28/19 Chief Complaint: Left-sided prickliness History of presenting complaint: This is a pleasant 79-year-old patient whose chronic stable medical conditions include GERD, pulmonary embolism with underlying blood disorder short bowel syndrome and has anywhere from 2-5 bowel movements a day kidney stones varicose veins peripheral neuropathy urinary stress incontinence. Patient stated she had a fall about a week ago falling on her left shoulder and hurting both the legs subsequently patient woke up this morning and felt some tingling on both the lips of the left side on the left half and also notices group prickliness in the left arm and left leg. Denied any obvious weakness. No change in vision no headache no change in speech. Decided to come in for the same. No fever no chills. No prior neurological symptoms. Neurology was consulted from the ER. Symptoms still persisting redness of the patient this afternoon. 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 Smoked a pack a day for 10 years stopped in 1978. Alcohol occasionally. Physical examination: VITAL SIGNS: 97.7, 69, 80, 150/67, 100% on room air GENERAL: BMI 18.6, sitting up in the bed, awake. EYES: Pupils equal. Conjunctiva normal. HEENT: External appearance of nose and ears normal, oral cavity grossly normal. NECK: JVD not raised; masses not palpable. HEART: First and second heart sounds are normal; no edema. LUNGS: Respiratory rate normal; clear to auscultation. ABDOMEN: Soft, nontender, liver spleen not palpable, no masses palpable. PSYCH: Alert and oriented x3; mood and affect normal. NEUROLOGICAL: Cranial nerves grossly intact; no facial asymmetry, power and sensation grossly intact. LYMPHATICS: No lymph nodes palpable in the axilla and neck INVESTIGATIONS, reviewed in the clinical context: White count 9.1 hemoglobin 10.9 platelets 353 potassium 4.8 bun 52 creatinine 2.68 Previous labs from November 2017 shows bun of 49 and creatinine of 2.45 EKG tracing personally reviewed by me-normal sinus rhythm nonspecific T-wave changes Computed tomography scan of the brain without contrast revealed acute diffuse age-related cerebral atrophy and nonspecific white matter changes Chest x-ray film personally reviewed by me shows-chronic compression deformity of T12 T 10, T7 age-indeterminate hyperinflation, linear scarring Assessment: -This is a patient who presents with paresthesia on the left upper and lower lip on the left side left arm and left leg with no obvious paresis. Denies any other associated neurological symptoms. This point we'll have the diagnosis of TIA. -Chronic pulmonary embolism for which patient is an eliquis -GERD -Chronic kidney disease stage III -Chronic compression fracture of T12, T10, T7 -Osteopenia -Short gut syndrome -Splenectomy -Metabolic acidosis from renal failure Plan: We'll order MRI of the brain with and without contrast, carotid Doppler and 2-D echocardiogram. We'll also order a UA and ultrasound and repeat labs in the morning. Had sodium bicarbonate. Care was discussed with the patient. Questions were answered. Past Medical History Past Medical History: Blood Disorder, GERD/Reflux, Pulmonary Embolus (PE) Additional Past Medical History / Comment(s): states unsure of blood disorder- sees a specialist for it. bowel obstruction, "short bowel syndrome"(frequent diarrhea). KIDNEY STONES X3. VARICOSE VEINS. HX INJURY TO BACK, HAS FRACTURES & BULGING DISCS. OSTEOPOROSIS, right shoulder pain History of Any Multi-Drug Resistant Organisms: None Reported Past Surgical History: Appendectomy, Bowel Resection, Orthopedic Surgery, Tonsillectomy Additional Past Surgical History / Comment(s): splenectomy 2018, bowel resection for twisted bowel, nohelia shoulder arthroscopy, 12/06/2017 right nephrolitomy with nephrostomy tube, 06/25/18 lt nephrolithotomy, & LT KIDNEY STONE REMOVAL 2014. Past Anesthesia/Blood Transfusion Reactions: Postoperative Nausea & Vomiting (PONV) Additional Past Anesthesia/Blood Transfusion Reaction / Comment(s): "I needed a little more anesthesia with last procedure so I was not jumping around" Past Psychological History: No Psychological Hx Reported Smoking Status: Former smoker Past Alcohol Use History: Occasional Additional Past Alcohol Use History / Comment(s): quit smoking 1979 EST, smoked for 1O yrs, < 1 PPD Past Drug Use History: None Reported - Past Family History Mother Family Medical History: No Reported History Father Family Medical History: Cancer Additional Family Medical History / Comment(s): LUNG CA Medications and Allergies Home Medications Medication Instructions Recorded Confirmed Type Apixaban [Eliquis] 5 mg PO BID 12/28/19 12/28/19 History Loperamide HCl [Imodium A-D] 2 mg PO QID PRN 12/28/19 12/28/19 History Pantoprazole Sodium [Protonix] 40 mg PO AC-BID 12/28/19 12/28/19 History Allergies Allergy/AdvReac Type Severity Reaction Status Date / Time hydrocodone bitartrate AdvReac Nausea Verified 12/28/19 11:06 [From EthosGen] morphine AdvReac Nausea Verified 12/28/19 11:06 Physical Exam Vitals: Vital Signs Temp Pulse Pulse Resp BP BP BP 12/28/19 20:00 75 16 213/77 147/67 12/28/19 16:34 98.1 F 16 140/69 12/28/19 16:04 98.1 F 76 16 140/69 12/28/19 12:50 16 150/65 12/28/19 12:11 65 18 137/80 12/28/19 09:27 97.7 F 69 18 150/67 Pulse Ox 12/28/19 20:00 97 12/28/19 16:34 98 12/28/19 16:04 98 12/28/19 12:50 98 12/28/19 12:11 100 12/28/19 09:27 100 Intake and Output 12/28/19 12/28/19 12/28/19 06:59 14:59 22:59 Intake Total 240 Balance 240 Intake: Oral 240 Other: # Voids 3 Weight 45.359 kg 45.359 kg Results CBC & Chem 7: 12/28/19 08:56 12/28/19 08:56 Labs: Abnormal Lab Results - Last 24 Hours (Table) 12/28/19 12/28/19 Range/Units 08:56 08:56 RBC 3.38 L (3.80-5.40) m/uL Hgb 10.9 L (11.4-16.0) gm/dL Hct 33.3 L (34.0-46.0) % Chloride 111 H (98-107) mmol/L Carbon Dioxide 16 L (22-30) mmol/L BUN 52 H (7-17) mg/dL Creatinine 2.68 H (0.52-1.04) mg/dL AST 45 H (14-36) U/L Thrombosis Risk Factor Assmnt - Choose All That Apply Each Factor Represents 1 point: Varicose veins Each Risk Factor Represents 3 Points: Age 75 years or older, History of DVT/PE Thrombosis Risk Factor Assessment Total Risk Factor Score: 7 Thrombosis Risk Factor Assessment Level: High Risk
[2019-12-29] MEDS: PANTOPRAZOLE 40 MG TABLET PO SCH (06:05)
[2019-12-29 06:24] LABS: Appearance,Urine Clear (Clear); Bacteria,Urine Rare /hpf; Bilirubin,Urine Negative (Negative); Blood,Urine Small (Negative); Color,Urine Light Yellow; Glucose,Urine (UA) Negative (Negative); Hyaline Casts,Urine 1 /lpf (0-2); Ketones,Urine Negative (Negative); Leukocyte Esterase,Urine Moderate (Negative); Mucus,Urine Rare /hpf; Nitrite,Urine Negative (Negative); Protein,Urine Negative (Negative); RBC,Urine 1 /hpf (0-5); Specific Gravity,Urine 1.005 (1.001-1.035); Squamous Epithelial Cell,Urine <1 /hpf (0-4); Urobilinogen,Urine <2.0 mg/dL (<2.0); WBC,Urine 35 /hpf (0-5)
[2019-12-29 07:46] LABS: Calcium 8.5 mg/dL (8.4-10.2); Potassium 4.2 mmol/L (3.5-5.1)
--- NOTE | 2019-12-29 08:00 | ECHOF ---
Referral Reason:TIA MEASUREMENTS -------- HEIGHT: 154.9 cm WEIGHT: 45.4 kg BP: IVSd: 0.9 cm (0.6 - 1.1) LVIDd: 3.5 cm (3.9 - 5.3) LVPWd: 1.0 cm (0.6 - 1.1) IVSs: 1.8 cm LVIDs: 1.9 cm LVPWs: 1.5 cm LAESV Index (A-L): 29.43 ml/m Ao Diam: 2.3 cm (2.0 - 3.7) AV Cusp: 1.6 cm (1.5 - 2.6) LA Diam: 2.4 cm (2.7 - 3.8) MV EXCURSION: 12.755 mm (> 18.000) MV EF SLOPE: 64 mm/s (70 - 150) EPSS: 0.5 cm MV E Mihai: 0.95 m/s MV DecT: 188 ms MV A Mihai: 1.32 m/s MV E/A Ratio: 0.72 RAP: 5.00 mmHg RVSP: 32.70 mmHg FINDINGS -------- Sinus rhythm. This was a technically good study. The left ventricular size is normal. There is mild concentric left ventricular hypertrophy. Overa ll left ventricular systolic function is normal with, an EF between 55 - 60 %. The right ventricle is normal in size. LA is midly dilated 29-33ml/m2. The right atrial size is normal. Interatrial and interventricular septum intact. The aortic valve is trileaflet and appears structurally normal. The mitral valve is normal. The mitral valve leaflets are mildly thickened. Mild mitral regurgita tion is present. The tricuspid valve appears structurally normal. Mild tricuspid regurgitation present. Right vent ricular systolic pressure is normal at < 35 mmHg. There is no pulmonic regurgitation present. The aortic root size is normal. Normal inferior vena cava with normal inspiratory collapse consistent with estimated right atrial pre ssure of 5 mmHg. There is a trivial pericardial effusion present. CONCLUSIONS -------- 1. Sinus rhythm. 2. This was a technically good study. 3. The left ventricular size is normal. 4. There is mild concentric left ventricular hypertrophy. 5. Overall left ventricular systolic function is normal with, an EF between 55 - 60 %. 6. The right ventricle is normal in size. 7. LA is midly dilated 29-33ml/m2. 8. The right atrial size is normal. 9. Interatrial and interventricular septum intact. 10. The aortic valve is trileaflet and appears structurally normal. 11. The mitral valve is normal. 12. The mitral valve leaflets are mildly thickened. 13. Mild mitral regurgitation is present. 14. The tricuspid valve appears structurally normal. 15. Mild tricuspid regurgitation present. 16. Right ventricular systolic pressure is normal at < 35 mmHg. 17. There is no pulmonic regurgitation present. 18. The aortic root size is normal. 19. Normal inferior vena cava with normal inspiratory collapse consistent with estimated right atrial pressure of 5 mmHg. 20. There is a trivial pericardial effusion present. LIP READING TEACHER: Maria Luisa Esparza RDCS
[2019-12-29] MEDS: APIXABAN 5 MG TAB PO SCH (08:10)
--- NOTE | 2019-12-29 08:27 | US ---
EXAMINATION TYPE: US kidneys/renal and bladder DATE OF EXAM: 12/29/2019 COMPARISON: CT's CLINICAL HISTORY: Evaluate for CKD. History of renal stones. EXAM MEASUREMENTS: Right Kidney: 9.7 x 4.5 x 5.2 cm Left Kidney: 8.9 x 4.5 x 4.2 cm Right Kidney: multiple stones with shadowing noted. The largest measures 0.8 cm. Left Kidney: multiple stones with shadowing. The largest measures 1.3 cm. Bladder: wnl Bilateral Jets seen: Yes There is no evidence for hydronephrosis at this point in time. No masses are identified. Mild bilat eral cortical renal thinning, indicative of chronic medical renal disease, left greater than right. T he urinary bladder is anechoic. Bilateral ureteral jets are seen. IMPRESSION: Multiple bilateral renal calculi the largest measuring up to 1.3 cm on the left. No hydro nephrosis. Cortical renal thinning on the basis of this patient's known medical renal disease.
[2019-12-29] MEDS ORDERED: ATORVASTATIN 40 MG TAB PO SCH (09:00)
[2019-12-29] MEDS ORDERED: ASPIRIN 81 MG PO SCH (09:00)
[2019-12-29] MEDS ORDERED: ASPIRIN 325 MG TAB PO SCH (09:00)
[2019-12-29] MEDS: SODIUM CHLORIDE 0.9% 1,000 ML IV SCH (10:22)
--- NOTE | 2019-12-29 11:10 | CONS ---
CONSULTATION DATE OF DICTATION: 12/29/2019 REFERRING PHYSICIAN: Dr. Sheldon Verduzco HISTORY OF PRESENT ILLNESS: Thank you for allowing me to evaluate Celeste Naranjo who is a 79-year-old right-handed white female who presented to [facility] on 12/28/2019 for evaluation of symptoms which were noted upon awakening on the day of admission. The patient first informed me that she had a fall last where she tripped and bruised her left shoulder and skinned her left knee. With that fall, she did not strike her head or lose consciousness. On Saturday morning, the patient was painting and holding the brush in her left hand and noted numbness in her left hand, which improved after she stopped painting. The following morning of admission, upon awakening, the patient noted a prickly sensation involving the left side of her lips, left hand and left lower extremity. With the symptoms, there was no associated headache, facial droop, vertigo, diplopia, dysarthria, cognitive lesions/swallowing or focal weakness on the left. She denied associated neck pain. She has no previous history of stroke, seizure or migraine. She is maintained on Eliquis in the setting of previous history of pulmonary embolus/DVT, she denies history of atrial fibrillation. At this time, the patient states the left lower extremity has improved but not completely resolved and she still notes a prickly sensation involving the left hand and left side of her lip. The patient does have a history of peripheral polyneuropathy, which she states is restricted to the toes bilaterally. She does report a family history of neuropathy in two brothers, neither of which were diabetic and also has a history of short- bowel syndrome, status post bowel resection with associated chronic diarrhea. In addition, the patient has a history of left V1 herpes zoster which occurred two months ago. She denies this zoster, leaving her with residual left facial paresthesias. ALLERGIES: NORCO/MORPHINE. HOME MEDICATIONS: Imodium, Eliquis, and Protonix. PAST MEDICAL HISTORY: PE/DVT, GERD, renal calculi, osteoporosis, chronic kidney disease, vertebral compression fractures, short-bowel syndrome, and peripheral polyneuropathy. PAST SURGICAL HISTORY: Appendectomy, bowel resection, tonsillectomy, splenectomy, renal calculi surgery, and bilateral shoulder surgeries. SOCIAL HISTORY: Patient denied tobacco use and occasionally consumes alcohol. She is without children and lives in a house with a friend. She does continue to drive and has not been using any assistive device to ambulate. FAMILY HISTORY: The patient's parents are . Mother had COPD and father had lung cancer. The patient has two brothers who are not diabetic and have a history of peripheral neuropathy. The patient denies other neurologic disease. REVIEW OF SYSTEMS: Fourteen systems are reviewed and no additional points are identified. The review of systems documented in history and physical. PHYSICAL EXAM: Upon my arrival to the patient's room, she was lying in bed, receptive to the examiner. Affect is normal. She is an accurate historian of thin build and appears of stated age. VITAL SIGNS: Blood pressure is 140/61 with pulse of 75, respiratory rate 16, temperature is 98.4, weight is 47.9 kg on a 5 foot, 1.5 inch frame. SKIN AND EXTREMITIES: The patient has bruising over the left shoulder and an abrasion over the left knee related to her recent fall. Arthritic changes are noted in the hands and feet. HEAD AND NECK: No tenderness or signs of trauma. Neck is supple without meningeal signs. Arteries are nontender and bilateral carotid bruits are noted. HEART: Regular rhythm, higher cortical function. Mental status patient was alert, oriented to self. She knew she was in [facility]. She knew the floor, city, year, month, day of week and could name the current president. She was able to name, repeat and read. There was no right, left disorientation, finger-nose extinction to double simultaneous stimulation or dysarthria. Cranial Nerves 2-12: Pupils are equal and reactive to light symmetrically. No afferent pupillary defect. Visual roberts are intact to confrontation, 346 no ptosis, extraocular movements were full, no nystagmus. 5 pinprick light touch intact in all 3 divisions including a detailed exam around the left-sided lips. Motor of 5 intact. 7 No facial asymmetry or weakness. 8 Acuity intact to finger rub. 9,10: palate ingrid in the midline. 11 Trapezius strength intact. 12 tongue protruded midline without fasciculation or atrophy. Motor examination there is no pronator drift. There is reduced bulk in hand intrinsic muscles with normal tone and no involuntary movements are noted. Strength is 5/5 throughout except at the interossei which are 4+/5 bilaterally. Sensory intact and light touch in all extremities including detailed examination of the left hand and left lower extremity. Reflexes right side listed first biceps 2,2; brachioradialis 2,2; triceps 2+ 2+, patellar 2+ 2+, ankle 2,2. Plantar responses flexor bilaterally. Perez's is absent. Coordination [id number], [id number] movements are intact. Rapid movements are symmetric with finger and foot tapping. DIAGNOSTIC TESTING: The patient had a CT scan of brain without contrast in the emergency room, which demonstrated atrophy, mild white matter ischemic change but no ventriculomegaly or acute pathology was identified. EKG and telemetry revealed normal sinus rhythm. LAB WORK: Demonstrates a white count of 9.1, hemoglobin of 10.9, platelet count 353. Sodium 137, potassium 4.2, BUN 46 with a creatinine 2.2, INR 1.0. ALT 21, AST 45, calcium 8.5. Cholesterol 117 with an LDL of 46, HDL 28, triglycerides 215, leroy virus negative. Urinalysis revealed moderate leukocyte esterase, 35 WBCs, 1 RBC, negative nitrate. IMPRESSION: 1. Left lip/hand/lower extremity numbness noted upon awakening yesterday morning, likely secondary to right hemispheric TIA/stroke. Etiology may be secondary to large vessel atherosclerotic disease in the setting of #2. Risk factors for stroke are limited to carotid occlusive disease and age. The patient was on Eliquis at the time of this event. 2. Carotid occlusive disease of 50% to 69% bilaterally per ultrasound, the right side may be symptomatic. 3. History of pulmonary embolus/DVT, maintained on Eliquis. 4. Peripheral polyneuropathy, which may be familial in nature and/or nutritional with history of short-bowel syndrome and chronic diarrhea. 5. Left V1 herpes zoster 2 months ago. 6. Osteoporosis with history of multiple vertebral compression fractures. 7. Urinary tract infection. 8. Thyroid problems including GERD, renal calculi, chronic kidney disease. 9. The patient is status post splenectomy. RECOMMENDATION: 1. I discussed my impression and plan with the patient and she expressed understanding. The patient informed me that she is anxious to go home. 2. MRI of the brain with diffusion-weighted images has been ordered with results pending at the time of this dictation. CT demonstrated no acute pathology. 3. Will pursue Vascular Surgery consultation regarding the right carotid stenosis. 4. The patient will continue anticoagulation which she informed me is lifelong therapy in the setting of prior PE/DVT. The patient is also on Lipitor. 5. Risk factor modification. 6. Avoid hypotension/hyperglycemia. 7. Echocardiogram completed during this hospitalization demonstrated an ejection fraction of 55%-60% with intact intra-atrial septum and telemetry has demonstrated normal sinus rhythm. 8. Will follow with you Thank you for allowing me to participate in the care of your patient. Clay Sanchez DO. JORDI / ELLIOTTN: [id number] / MTDD
[2019-12-29 12:10] VITALS: BP 149/69; PULSE 69; TEMP 98.1
--- NOTE | 2019-12-29 13:06 | MR ---
EXAMINATION TYPE: MR brain wo/w con DATE OF EXAM: 12/29/2019 COMPARISON: CT brain 12/28/2019 HISTORY: Neuro deficit, TIA TECHNIQUE: Multiplanar, multisequence images of the brain and brainstem is performed without and with IV contras t, utilizing 4.5 mL intravenous Gadavist . FINDINGS: Diffusion weighted images demonstrate no evidence of a recent infarct or other diffusion ab normality. There is no extra-axial fluid collection. Periventricular and pericallosal white matter shows scattered and confluent hyperintensities on T2 and inversion recovery sequences, there is exten andrea into the cortical and juxtacortical regions. The ventricular system and cisternal spaces are nor mal in size and appearance. The brain volume is age appropriate, there is cortical atrophy which is likely age-related. Midline structures demonstrate normal morphology, there is a partially empty sella. The craniocervic al junction appears within normal limits. Post contrast images demonstrate no abnormal enhancement. The dural venous sinuses appear patent. The visualized sinuses are showing some inflammatory change i n the ethmoid air cells, sphenoid sinus, and the globes are intact. IMPRESSION: No subacute ischemia is evident. Age-related changes of atrophy and probable chronic smal l vessel ischemia.
--- NOTE | 2019-12-29 13:48 | P.GSCN ---
History of Present Illness Consult date: 12/29/19 Reason for Consult: Symptomatic carotid stenosis Requesting physician: Clay Sanchez History of present illness: Patient is a 79-year-old female who presented to the emergency department yesterday after having numbness and tingling that she described as a prickly sensation to her left side of her face, left lip, left hand, and left lower extremity. Her past medical history includes pulmonary embolism, GERD, osteoporosis, chronic kidney disease, osteoporosis, short bowel syndrome and peripheral neuropathy.The patient denies that she had any changes with her vision, speech, confusion, facial drooping, headache, or extremity weakness. She denies any previous history of stroke or TIA. She does state that she has a history of a bleeding disorder which she cannot remember the name of, however did have to have her spleen removed and had a history of pulmonary embolism which she believes was status post removal of her spleen. She is on Eliquis due to her history of pulmonary embolism She follows a grove superintendent Dr. Rehman, and was told not to take any additional aspirin and top of her Eliquis. The patient states she does have a history of peripheral neuropathy, therefore she figured symptoms are related to that. She states she still currently has some of the prickly sensation to her left lower lip, left hand and bilateral lower extremities. Patient denies any shortness of breath, chest pain, difficulty swallowing, difficulty with speech, or visual changes. ET of the brain showed n o acute findings. Carotid ultrasound showed a 50-69% stenosis of the right carotid artery. suspected stenosis of 50-69% within the left internal and external carotid arteries. MRI of the brain with contrast shows no subacute ischemia is evident. Age-related changes of atrophy and probable chronic small vessel ischemia. Review of Systems Review of systems completed and all pertinent positives and negatives as stated in the HPI Past Medical History Past Medical History: Blood Disorder, GERD/Reflux, Pulmonary Embolus (PE) Additional Past Medical History / Comment(s): states unsure of blood disorder- sees a specialist for it. bowel obstruction, "short bowel syndrome"(frequent diarrhea). KIDNEY STONES X3. VARICOSE VEINS. HX INJURY TO BACK, HAS FRACTURES & BULGING DISCS. OSTEOPOROSIS, right shoulder pain History of Any Multi-Drug Resistant Organisms: None Reported Past Surgical History: Appendectomy, Bowel Resection, Orthopedic Surgery, Tons illectomy Additional Past Surgical History / Comment(s): splenectomy 2018, bowel resection for twisted bowel, nohelia shoulder arthroscopy, 12/06/2017 right nephrolitomy with nephrostomy tube, 06/25/18 lt nephrolithotomy, & LT KIDNEY STONE REMOVAL 2015. Past Anesthesia/Blood Transfusion Reactions: Postoperative Nausea & Vomiting (PONV) Additional Past Anesthesia/Blood Transfusion Reaction / Comm: "I needed a little more anesthesia with last procedure so I was not jumping around" Past Psychological History: No Psychological Hx Reported Smoking Status: Former smoker Past Alcohol Use History: Occasional Additional Past Alcohol Use History / Comment(s): quit smoking 1978 EST, smoked for 1O yrs, < 1 PPD Past Drug Use History: None Reported - Past Family History Mother Family Medical History: No Reported History Father Family Medical History: Cancer Additional Family Medical History / Comment(s): LUNG CA Medications and Allergies Home Medications Medication Instructions Recorded Confirmed Type Apixaban [Eliquis] 5 mg PO BID 12/28/19 12/28/19 History Loperamide HCl [Imodium A-D] 2 mg PO QID PRN 12/28/19 12/28/19 History Pantoprazole Sodium [Protonix] 40 mg PO AC-BID 12/28/19 12/28/19 History Aspirin 81 mg PO DAILY chew 12/29/19 Rx Atorvastatin Calcium [Lipitor] 20 mg PO DAILY #30 tab 12/29/19 Rx Allergies Allergy/AdvReac Type Severity Reaction Status Date / Time hydrocodone bitartrate AdvReac Nausea Verified 12/28/19 11:06 [From [facility]] morphine AdvReac Nausea Verified 12/28/19 11:06 Surgical - Exam Vital Signs Temp Pulse Resp BP Pulse Ox 97.7 F 69 18 150/67 100 12/28/19 09:27 12/28/19 09:27 12/28/19 09:27 12/28/19 09:27 12/28/19 09:27 General appearance: The patient is alert, oriented, in no acute distress. HET: Head is normocephalic and atraumatic. Pupils are equal and reactive. Neck: Supple without lymphadenopathy. Trachea midline. Audible carotid bruit on right, no bruit noted on left. Heart: S1 S2. Regular rate and rhythm. Lungs: Clear to auscultation bilaterally.No crackles or wheezes are heard. Abdomen: Soft, nontender, nondistended with bowel sounds. No peritoneal signs. No palpable organomegaly or masses. Extremities: Normal skin color and turgor. No cyanosis, rash, ulceration, clubbing, or edema. Radial and pedal pulses are 2/4 bilaterally. Neurological: No focal deficits. Strength and sensation are grossly intact. Speech is fluent. Results bilateral carotid duplex reviewed with Dr. Michael right ICA to 13.5 with ICA ratio of 2.2, left ICA 154.9 with a ratio of 1.6. portions shows a stenosis of 50-69% within the right internal carotid artery. Suspected stenosis of 50-69% within the left internal and external carotid arteries CTA neck could confirm this finding. CT of brain without contrast shows no acute intracranial hemorrhage or midline shift. MRI could be performed to increase sensitivity in detection of acute stroke in this patient with neurological deficit. There is diffuse age-related cerebral atrophy and nonspecific white or change, predominating in the periatrial white matter bilaterally that is likely on the basis of chronic microangiopathy. - Labs 12/28/19 08:56 12/29/19 06:46 Abnormal Lab Results - Last 24 Hours (Table) 12/28/19 12/28/19 12/29/19 Range/Units 08:56 08:56 06:06 RBC 3.38 L (3.80-5.40) m/uL Hgb 10.9 L (11.4-16.0) gm/dL Hct 33.3 L (34.0-46.0) % Chloride 111 H (98-107) mmol/L Carbon Dioxide 16 L (22-30) mmol/L BUN 52 H (7-17) mg/dL Creatinine 2.68 H (0.52-1.04) mg/dL AST 45 H (14-36) U/L Triglycerides (<150) mg/dL HDL Cholesterol (40-60) mg/dL Urine Blood Small H (Negative) Ur Leukocyte Esterase Moderate H (Negative) Urine WBC 35 H (0-5) /hpf Urine Bacteria Rare H (None) /hpf Urine Mucus Rare H (None) /hpf 12/29/19 Range/Units 06:46 RBC (3.80-5.40) m/uL Hgb (11.4-16.0) gm/dL Hct (34.0-46.0) % Chloride 115 H (98-107) mmol/L Carbon Dioxide 17 L (22-30) mmol/L BUN 46 H (7-17) mg/dL Creatinine 2.27 H (0.52-1.04) mg/dL AST (14-36) U/L Triglycerides 215 H (<150) mg/dL HDL Cholesterol 28 L (40-60) mg/dL Urine Blood (Negative) Ur Leukocyte Esterase (Negative) Urine WBC (0-5) /hpf Urine Bacteria (None) /hpf Urine Mucus (None) /hpf Diabetes panel 12/28/19 12/29/19 Range/Units 08:56 06:46 Sodium 137 137 (137-145) mmol/L Potassium 4.8 4.2 (3.5-5.1) mmol/L Chloride 111 H 115 H (98-107) mmol/L Carbon Dioxide 16 L 17 L (22-30) mmol/L BUN 52 H 46 H (7-17) mg/dL Creatinine 2.68 H 2.27 H (0.52-1.04) mg/dL Glucose 92 87 (74-99) mg/dL Calcium 9.6 8.5 (8.4-10.2) mg/dL AST 45 H (14-36) U/L ALT 21 (4-34) U/L Alkaline Phosphatase 86 (38-126) U/L Total Protein 7.4 (6.3-8.2) g/dL Albumin 4.2 (3.5-5.0) g/dL Triglycerides 215 H (<150) mg/dL HDL Cholesterol 28 L (40-60) mg/dL Calcium panel 12/28/19 12/29/19 Range/Units 08:56 06:46 Calcium 9.6 8.5 (8.4-10.2) mg/dL Albumin 4.2 (3.5-5.0) g/dL Pituitary panel 12/28/19 12/29/19 Range/Units 08:56 06:46 Sodium 137 137 (137-145) mmol/L Potassium 4.8 4.2 (3.5-5.1) mmol/L Chloride 111 H 115 H (98-107) mmol/L Carbon Dioxide 16 L 17 L (22-30) mmol/L BUN 52 H 46 H (7-17) mg/dL Creatinine 2.68 H 2.27 H (0.52-1.04) mg/dL Glucose 92 87 (74-99) mg/dL Calcium 9.6 8.5 (8.4-10.2) mg/dL Adrenal panel 12/28/19 12/29/19 Range/Units 08:56 06:46 Sodium 137 137 (137-145) mmol/L Potassium 4.8 4.2 (3.5-5.1) mmol/L Chloride 111 H 115 H (98-107) mmol/L Carbon Dioxide 16 L 17 L (22-30) mmol/L BUN 52 H 46 H (7-17) mg/dL Creatinine 2.68 H 2.27 H (0.52-1.04) mg/dL Glucose 92 87 (74-99) mg/dL Calcium 9.6 8.5 (8.4-10.2) mg/dL Total Bilirubin 0.8 (0.2-1.3) mg/dL AST 45 H (14-36) U/L ALT 21 (4-34) U/L Alkaline Phosphatase 86 (38-126) U/L Total Protein 7.4 (6.3-8.2) g/dL Albumin 4.2 (3.5-5.0) g/dL Assessment and Plan Assessment: 1. Symptomatic carotid stenosis right greater than left up to 69 percent 2. Left lip/facial numbness, with left upper and lower extremity numbness and tingling likely related to TIA Plan: CTA of the neck was ordered with contrast, however due to patient's chronic kidney disease and having MRI done today with contrast will likely be done tomorrow. However the patient states she does not want to remain inpatient and would like to be discharged. Dr. Michael discuss with Dr. Jett that it would be reasonable for the patient to follow up outpatient in their office and have the ET the neck done as an outpatient. Augmentation is for the patient to continue her Eliquis, start on statin, and low-dose aspirin daily. The patient however states that her grove superintendent recommends that she not be on an aspirin with her Eliquis. I did call her grove superintendent 's office and they did confirm that they do not recommend the patient starting a daily aspirin regimen. Dr. Michael discuss with the patient that she will likely need vascular surgical intervention for the right carotid artery, the patient is agreeable to seeing her in the office to discuss further plan of care and surgical options. Thank you for this consultation allowing us to take part in the plan of care of this patient during her hospital stay. The above dictated assessment and findings were discussed with Dr. Michael. The impression and plan of care have been directed as dictated.
[2019-12-29 20:01] LABS: Hemoglobin A1C 5.3 % (4.0-6.0)
--- NOTE | 2019-12-29 22:13 | P.DS ---
Providers Date of admission: 12/28/19 11:15 Expected date of discharge: 12/29/19 Attending physician: James Jett Consults: 12/28/19 11:03 Consult Physician Urgent Consulting Provider: Clay Sanchez Consult Reason/Comments: l parastesia, tia Do you want consulting provider notified?: Yes 12/29/19 09:21 Consult Physician Routine Consulting Provider: Kalpesh Moyer Consult Reason/Comments: symptomatic carotid stenosis Do you want consulting provider notified?: Already Contacted Primary care physician: Adrian Walsh [facility] Course: Chief Complaint: Left-sided prickliness History of presenting complaint: This is a pleasant 79-year-old patient whose chronic stable medical conditions include GERD, pulmonary embolism with underlying blood disorder short bowel syndrome and has anywhere from 2-5 bowel movements a day kidney stones varicose veins peripheral neuropathy urinary stress incontinence. Patient stated she had a fall about a week ago falling on her left shoulder and hurting both the legs subsequently patient woke up this morning and felt some tingling on both the lips of the left side on the left half and also notices group prickliness in the left arm and left leg. Denied any obvious weakness. No change in vision no headache no change in speech. Decided to come in for the same. No fever no chills. No prior neurological symptoms. Neurology was consulted from the ER. Symptoms still persisting redness of the patient this afternoon. Admitted with TIA. Carotid Doppler showed 52-69% stenosis on both sides. Seen by Dr. Nany Michael. We'll follow-up as an outpatient. MRI of the brain showed chronic changes. Care was discussed with Dr. Michael today. Also discussed with Dr. Sanchez from neurology. Patient okay to be discharged. Discussed with the patient. Continue with aspirin eliquis. Lipitor was started. Discussion and discharge planning more than 35 minutes Consultation: Dr. Michael from vascular Dr. Sanchez from neurology Physical examination: VITAL SIGNS: 98.1, 69, 16, 149/69, 99% on room air GENERAL: Sitting up, cheerful comfortable EYES: Pupils equal. Conjunctiva normal. HEENT: External appearance of nose and ears normal, oral cavity grossly normal. NECK: JVD not raised; masses not palpable. HEART: First and second heart sounds are normal; no edema. LUNGS: Respiratory rate normal; clear to auscultation. ABDOMEN: Soft, nontender, liver spleen not palpable, no masses palpable. PSYCH: Alert and oriented x3; mood and affect normal. NEUROLOGICAL: Cranial nerves grossly intact; no facial asymmetry, power and sensation grossly intact. INVESTIGATIONS, reviewed in the clinical context: White count 9.1 hemoglobin 10.9 platelets 353 potassium 4.8 bun 52 creatinine 2.68 Previous labs from November 2017 shows bun of 49 and creatinine of 2.45 EKG tracing personally reviewed by me-normal sinus rhythm nonspecific T-wave changes Computed tomography scan of the brain without contrast revealed acute diffuse age-related cerebral atrophy and nonspecific white matter changes Chest x-ray film personally reviewed by me shows-chronic compression deformity of T12 T 10, T7 age-indeterminate hyperinflation, linear scarring Abdominal ultrasound-multiple bilateral renal calculi with cortical renal thinning. MRI brain-chronic changes Carotid Pnlqmwg-24-74% stenosis bilaterally. Assessment: -TIA, POA -Chronic pulmonary embolism for which patient is an eliquis -GERD -Chronic kidney disease stage III from renal stones -Chronic compression fracture of T12, T10, T7 -Osteopenia -Short gut syndrome -Splenectomy -Metabolic acidosis from renal failure -Bilateral carotid artery stenosis noncritical 50-69% before by Dr. Michael Disposition: Home Patient Condition at Discharge: Stable Plan - Discharge Summary Discharge Rx Participant: No New Discharge Prescriptions: New Aspirin 81 mg PO DAILY chew Atorvastatin Calcium [Lipitor] 20 mg PO DAILY #30 tab Continue Pantoprazole Sodium [Protonix] 40 mg PO AC-BID Apixaban [Eliquis] 5 mg PO BID Loperamide HCl [Imodium A-D] 2 mg PO QID PRN PRN Reason: Diarrhea Discharge Medication List Apixaban [Eliquis] 5 mg PO BID 12/28/19 [History] Loperamide HCl [Imodium A-D] 2 mg PO QID PRN 12/28/19 [History] Pantoprazole Sodium [Protonix] 40 mg PO AC-BID 12/28/19 [History] Aspirin 81 mg PO DAILY chew 12/29/19 [Rx] Atorvastatin Calcium [Lipitor] 20 mg PO DAILY #30 tab 12/29/19 [Rx] Follow up Appointment(s)/Referral(s): Erica Michael DO [STAFF PHYSICIAN] - 1 Week (Office is currently closed. Please call tomorrow to schedule follow up appointment. Please call [facility] at [phone].) Adrian Walsh MD [Primary Care Provider] - 12/31/19 1:30 pm Christopher Burns MD [Medical Doctor] - 2 Weeks (Office is currently closed. Please call office tomorrow to schedule follow up apppointment) Patient Instructions/Handouts: Transient Ischemic Attack (GEN) Discharge Disposition: HOME SELF-CARE
== END 2019-12-29 13:50 | disposition home or self-care (01) ==
LOC: EC 09:23 → 3SCARD 11:15
PROVIDERS: ADMIT Hospitalist; ATTEND Hospitalist
DX: G45.9 Transient cerebral ischemic attack, unspecified (principal); I27.82 Chronic pulmonary embolism; W19.XXXA Unspecified fall, initial encounter; K21.9 Gastro-esophageal reflux disease without esophagitis; D75.9 Disease of blood and blood-forming organs, unspecified; Z87.442 Personal history of urinary calculi; I83.90 Asymptomatic varicose veins of unspecified lower extremity; M81.0 Age-related osteoporosis without current pathological fracture; Z90.49 Acquired absence of other specified parts of digestive tract; Z87.891 Personal history of nicotine dependence; G31.9 Degenerative disease of nervous system, unspecified; Z79.01 Long term (current) use of anticoagulants; Z79.899 Other long term (current) drug therapy; Z88.5 Allergy status to narcotic agent; N18.3 Chronic kidney disease, stage 3 (moderate); M80.88XA Other osteoporosis with current pathological fracture, vertebra(e), initial encounter for fracture; Z90.81 Acquired absence of spleen; E87.2 Acidosis; Z80.1 Family history of malignant neoplasm of trachea, bronchus and lung; G62.9 Polyneuropathy, unspecified; R32 Unspecified urinary incontinence; I65.23 Occlusion and stenosis of bilateral carotid arteries; N39.0 Urinary tract infection, site not specified
CPT/HCPCS: 99285; 36415; 93005; 93306; 97161; 97165; 80061; 80053; 80048; 85025; 85610; 85730; 81001; 83036; 71046; 76770; 93880; 70450; 70553; G0378 ×2; U0003; A9585

== ENCOUNTER 2021-06-20 09:26 | Day surgery (SDC) | payer MEDICARE, BC ==
[2021-06-13 16:12] VITALS: BMI 18.6
[2021-06-20 09:59] VITALS: TEMP 98.1
[2021-06-20] MEDS ORDERED: SODIUM CHLORIDE 0.9% 500 ML 500 ML IV ONE (10:01)
[2021-06-20] MEDS ORDERED: BENZOCAINE SPRAY 1 CAN TOPICAL ONE (11:12)
[2021-06-20] MEDS: MIDAZOLAM 2 MG/2 ML VIAL IV ONE ×2 (11:12→11:16)
[2021-06-20] MEDS ORDERED: SODIUM CHLORIDE 0.9% 1,000 ML IV SCH (11:30)
--- NOTE | 2021-06-20 12:05 | ECHOT ---
TRANSESOPHAGEAL ECHOCARDIOGRAM INDICATION: Mitral regurgitation. PROCEDURE NOTE: After obtaining informed consent, transesophageal echocardiogram is performed in left lateral position using an Omniplane probe. Local and IV sedation were obtained with 1 mg of Versed. Patient tolerated the procedure well without any obvious immediate complications. Total sedation time was 8 minutes. FINDINGS: 1. Mitral valve shows mitral annular calcification with moderate central mitral regurgitation. Left atrium appears enlarged. Right and right ventricle seem within normal limits. Left ventricle has normal size and systolic function. Tricuspid valve shows mild tricuspid regurgitation. 2. Interatrial septum: There is no evidence of [id number] shunt by color-flow Doppler or [id number] shunt by agitated saline contrast study. 3. Aortic valve is a 3-leaflet valve and appears heavily calcified with mild restriction in leaflet mobility. There is no evidence of aortic regurgitation. Aorta shows moderate atherosclerotic changes. CONCLUSIONS: 1. Normal LV systolic function. 2. Moderate central mitral regurgitation. 3. Aortic sclerosis without significant stenosis. MMODL / IJN: [id number] /
[2021-06-20 18:03] VITALS: RESP 16
[2021-06-20 18:04] VITALS: BP 113/56; PULSE 68
== END 2021-06-20 12:30 | disposition home or self-care (01) ==
LOC: CATHCVL 09:26
PROVIDERS: ATTEND Internal Medicine Cardiovascular Disease
DX: I34.0 Nonrheumatic mitral (valve) insufficiency (principal); Z20.822 Contact with and (suspected) exposure to COVID-19
CPT/HCPCS: 93312; 93320; 93325; 87635; J2250